=== PATIENT | male | born 1955 | race Caucasian/White ===

== ENCOUNTER 2019-06-13 12:27 | Inpatient (IN) | payer BC ==
[2019-06-13] MEDS ORDERED: Acetaminophen 325 MG Tab PO ONE (12:35)
[2019-06-13] MEDS ORDERED: cefTRIAXone 1 GM in Sodium Chloride 0.9% 100 ML IV ONE (12:35)
--- NOTE | 2019-06-13 12:35 | EDM.PDOC ---
ED HPI GENERAL MEDICAL PROBLEM - General Chief Complaint: Lower Extremity Injury/Pain Stated Complaint: left foot wound Time Seen by Provider: 06/13/19 12:30 Source of Information: Reports: Patient, Old Records ([facility] chart/EMR), Other (Limited records from [facility] in [place]) History Limitations: Reports: No Limitations - History of Present Illness INITIAL COMMENTS - FREE TEXT/NARRATIVE: The patient drove himself to the emergency room via private automobile for evaluation of cellulitis and lymphangitis from his left foot after initial brief evaluation by his regular provider, PHOEBE Cotter at the [facility] in [place], who did refer the patient to our facility for further treatment and evaluation. The patient had some callus and superficial ulcer on his left third toe, which he pulled off on his own about one week ago with no problems or pain at that time. Note that since about 16:00 hours yesterday afternoon the patient began having increasing 5/10 sharp pain in his left toe and foot with increasing redness and some drainage since that time. Note that the patient was cleaning multiple buckets at work and did have wet feet and boots throughout the day yesterday, however no history of acute injury, foreign body, etc.. He did not take any pain or antipyretic medications for his symptoms to this point. The patient denies any chest pain/pressure, heart flutter, dizziness, orthostasis, orthopnea, diaphoresis, paresthesias, recent decreased exercise tolerance, or any other anginal-type symptoms. No recent history of abdominal pain, heartburn, nausea, diarrhea, melena, gross hematochezia, or any food intolerance, including fatty foods, etc.. He denies any gross hematuria, colic, UTI symptoms, etc. The patient also denies any recent cough, wheezing, dyspnea, etc. although he did have fever and chills since yesterday afternoon but did not measure his temperature. Temperature of 100.1 at [facility] in [place] prior to transfer. Onset: Gradual Onset Date: 06/12/19 Onset Time: 16:00 Duration: Constant, Getting Worse Location: Reports: Lower Extremity, Left. Denies: Head, Face, Neck, Abdomen, Back, Upper Extremity, Left, Upper Extremity, Right, Radiates to Quality: Reports: Sharp, Stabbing, Throbbing Severity: Mild Improves with: Reports: None Worsens with: Reports: None Context: Reports: Other (As above). Denies: Sick Contact, Trauma Associated Symptoms: Reports: Fever/Chills, Rash (Cellulitis as above). 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: Reports: Other (see below) (None) Left Toe-Middle Pain Score (Numeric/FACES): 5 - Related Data Allergies Allergy/AdvReac Type Severity Reaction Status Date / Time venom-honey bee Allergy Anaphylactic Verified 11/05/15 16:50 [bee venom (honey bee)] Shock Home Meds: Home Meds Brimonidine Tartrate/Timolol [Combigan 0.2%-0.5% Eye Drops] 1 drop EYEBOTH DAILY 11/05/15 [History] EPINEPHrine [Epipen 2-Shon] 0.3 ml SUBCUT ASDIRECTED PRN 11/05/15 [History] Fenofibrate,Micronized [Fenofibrate] 134 mg PO BEDTIME 11/05/15 [History] Latanoprost 1 drop EYEBOTH BEDTIME 11/05/15 [History] Olmesartan [Benicar] 20 mg PO DAILY 11/05/15 [History] Pravastatin Sodium [Pravachol] 40 mg PO BEDTIME 11/05/15 [History] metFORMIN HCl [Metformin HCl] 1,000 mg PO DAILY@1800 06/13/19 [History] metFORMIN [Glucophage XR] 500 mg PO DAILY 06/13/19 [History] Past Medical History HEENT History: Reports: Glaucoma, Impaired Vision, Otitis Media, Other (See Below). Denies: Allergic Rhinitis, Cataract, Hard of Hearing, Retinal Detachment Other HEENT History: Recurrent otitis media with no surgeries required. Nasal fracture at the time of delivery with subsequent surgery at age 34. He does wear glasses. Severe allergic reaction with wasp and bee stings including dyspnea and dysphagia. Cardiovascular History: Reports: High Cholesterol, Hypertension, Other (See Below). Denies: Afib, Aneurysm, Arrhythmia, Blood Clots/VTE/DVT, CAD, Heart Failure, Heart Murmur, [place], PVD, Syncope Other Cardiovascular History: Dyslipidemia/mixed hyperlipidemia. Respiratory History: Reports: COPD, Intubation, Previous, Pulmonary Fibrosis, Other (See Below). Denies: Asthma, Bronchitis, Recurrent, Intubation, Difficult , PE, Pneumonia, Recurrent, Sleep Apnea Other Respiratory History: COPD and pulmonary fibrosis by chest x-ray with no current or previous therapy. Benign pulmonary nodules. Gastrointestinal History: Reports: Fatty Liver, GERD, Other (See Below). Denies : Celiac Disease, Cholelithiasis, Chronic Constipation, Chronic Diarrhea, Colon Polyp, Fecal Incontinence, Hepatitis, Helicobacter Pylori, Inflammatory Bowel Disease, Irritable Bowel Syndrome, Jaundice, Pancreatitis, PUD Other Gastrointestinal History: History of LFTs elevation secondary to fatty liver. Genitourinary History: Reports: BPH, Renal Calculus, Other (See Below). Denies : Acute Renal Failure, Chronic Renal Insuffiency, STD, Urinary Incontinence, UTI , Recurrent Other Genitourinary History: History of possible suspected urolithiasisside unknown with spontaneous passage in about 2004 and no diagnostic workup by patient history. Musculoskeletal History: Reports: Arthritis, Osteoarthritis, Other (See Below). Denies: Back Pain, Chronic, Fracture, Gout, Neck Pain, Chronic, RA, SLE Other Musculoskeletal History: Moore's cyst of the right knee with surgery as below. Neurological History: Reports: Headaches, Chronic, Neuropathy, Diabetic, Neuropathy, Peripheral, Other (See Below). Denies: Cerebral Aneurysms, Concussion, Head Trauma, MS, Parkinson's, Seizure, TIA, Vertigo Other Neuro History: Nonspecific headaches in teenage years nonproblematic at this time. Psychiatric History: Reports: Anxiety, Depression. Denies: Abuse, Victim of, ADD, ADHD, Addiction, Dementia, Hallucinations, Psych Hospitalization(s), Psychosis, PTSD, Suicide Attempt, Suicidal Ideation Endocrine/Metabolic History: Reports: Diabetes, Type II, Multinodular Thyroid, Obesity/BMI 30+, Other (See Below). Denies: Diabetes, Type I, Diabetes Mellitus , Type 3c, Hypothyroidism, IDDM, Osteopenia, Osteoporosis Other Endocrine/Metabolic History: Multiple benign thyroid nodules by serial ultrasounds as below with no apparent previous history of fine-needle aspiration biopsy. Hematologic History: Reports: None. Denies: Anemia, Blood Transfusion(s), Iron Deficiency Immunologic History: Reports: None. Denies: AIDS, HIV, SLE Oncologic (Cancer) History: Reports: None. Denies: Basal Cell Carcinoma, Colon , Hodgkin's Lymphoma, Leukemia, Lymphoma, Malignant Melanoma, Non-Hodgkin's Lymphoma, Prostate, Squamous Cell Carcinoma Dermatologic History: Reports: None. Denies: Eczema, Psoriasis - Infectious Disease History Infectious Disease History: Reports: Chicken Pox, Mumps. Denies: C-Difficile, Measles, Meningitis, Mononucleosis, MRSA, Pertussis (Whooping Cough), Rheumatic Fever, RSV, Rubella, Scarlet Fever, Shingles, TB, VRE - Past Surgical History Head Surgeries/Procedures: Reports: None HEENT Surgical History: Reports: Adenoidectomy, Naso-Sinus Surgery, Oral Surgery , Tonsillectomy, Other (See Below). Denies: Cataract Surgery, Eye Surgery, Myringotomy w Tube(s) Other HEENT Surgeries/Procedures: Tonsillectomy and adenoidectomy at age 1. Repair of nasal fracture at at age 34 as above. [place] teeth extraction 2 uppers in his early 50s. Cardiovascular Surgical History: Reports: None. Denies: Varicose Respiratory Surgical History: Reports: None. Denies: Thoracentesis GI Surgical History: Reports: Colonoscopy, Other (See Below). Denies: Appendectomy, Cholecystectomy, EGD, Hernia, Abdominal, Hernia, Inguinal, Hernia Repair/Other, Aubrey Fundoplication, Polypectomy Other GI Surgeries/Procedures: Colonoscopy on 01/07/10. Male Surgical History: Reports: Circumcision, Other (See Below). Denies: TURP-Transurethral Resection of Prostate, Vasectomy Other Male Surgeries/Procedures: Circumcision as an . Endocrine Surgical History: Reports: None. Denies: Thyroid Biopsy Neurological Surgical History: Reports: None. Denies: C-Spine, Discectomy, Laminectomy, Lumbar Spine, Sacral Spine, Spinal Fusion, Thoracic Spine, Vertebroplasty Musculoskeletal Surgical History: Reports: Arthroscopic Knee, Arthroscopic Procedure, Other (See Below). Denies: Carpal Tunnel, Ganglion Cyst, Joint Replacement, ORIF, Shoulder Replacement, Shoulder Surgery Other Musculoskeletal Surgeries/Procedures:: Right knee arthroscopic medial meniscal repair on 10/25/13. Oncologic Surgical History: Reports: None Dermatological Surgical History: Reports: Other (See Below) Other Dermatological Surgeries/Procedures: Cryotherapy of benign lesions from his right clavicle and right temporal region. - Past Imaging History Past Imaging History: Reports: MRI (Right knee on 02/06/13. Left fingers on 07/14.), Ultrasound (Thyroid ultrasound on 09/20/18, 03/15/14, 03/05/13, and . Left scrotal ultrasound on 02/05/15. Gallbladder ultrasound on 12/20/11.) Social & Family History - Family History HEENT: Reports: None. Denies: Cataract, Glaucoma, Macular Degeneration, Retinal Detachment Cardiac: Reports: CAD, Heart Failure, Hypertension, [place], Other (See Below). Denies: Afib, Aneurysm, Arrhythmia, Blood Clots/VTE/DVT, Heart Murmur, High Cholesterol, Pacemaker, PVD/COD, Syncope Other Cardiac Family History: Father and 2 brothers with hypertension. Father with fatal CHF at age 72. Paternal aunt with KY in her 70s with subsequent fatal KY 3 days thereafter after PTCA/stent placement. Respiratory: Reports: Asthma, Other (See Below). Denies: COPD, PE, Pneumothorax , Sleep Apnea Other Respiratory Family Hisory: Father with asthma. GI: Reports: None. Denies: Celiac Disease, Cholelithiasis, Colon Polyps, GERD, GI bleed, Inflammatory Bowel Disease, Irritable Bowel Syndrome, PUD : Reports: None. Denies: Dialysis, Renal Calculus, Renal Disease/ Insufficiency OBGYN: Reports: Other (See Below). Denies: Dysfunctional uterine bleeding, Endometriosis Other OBGYN Family History: Mother with and ovarian cancer as below Musculoskeletal: Reports: Arthritis, Osteoarthritis, Other (See Below). Denies : Gout, RA, SLE Other Musculoskeletal Family History: Paternal aunt with osteoarthritis. Neurological: Reports: Parkinson's, Other (See Below). Denies: Alzheimers Disease, CVA, Dementia, Migraines, MS, Seizure, TIA Other Neurological Family History: Paternal Aunt with Parkinson's. Son with muscular dystrophy. Psychiatric: Reports: Anxiety, Depression, Suicide Attempt, Other (See Below) Other Psychiatric Family History: Maternal uncle with successful suicide Endocrine/Metabolic: Reports: Diabetes, type II, IDDM, Other (See Below). Denies: Diabetes, Gestational, Diabetes, Type I, Diabetes Mellitus, Type 3c, Hypothyroidism Other Endocrine/Metabolic Family History: Maternal grandmother, maternal uncle, and maternal aunt with IDDM Hematologic: Reports: None. Denies: Anemia, SLE Immunologic: Reports: None. Denies: AIDS, HIV, SLE Dermatologic: Reports: None. Denies: Eczema, Psoriasis Oncologic: Reports: Lymphoma, Metastatic, Ovarian, Uterine. Denies: Breast, Colon, Hodgkin's Lymphoma, Leukemia, Non-Hodgkin's Lymphoma, Prostate, Skin Other Oncologic Family History: Mother with fatal metastatic ovarian cancer at age 54. Brother with possible abdominal lymphoma in his 50s. - Tobacco Use Smoking Status *Q: Never Smoker Tobacco Use Within Last Twelve Months: No Used Tobacco, but Quit: No Smoking Cessation Information Provided To Patient: No Second Hand Smoke Exposure: No Second Hand Smoke Education Provided: No - Caffeine Use Caffeine Use: Reports: None, Soda (1 soda per month). Denies: Coffee, Energy Drinks, Tea - Alcohol Use Alcohol Use History: No Days Per Week of Alcohol Use: 0 Number of Drinks Per Day: 0 Number of Drinks Per Day Comment: No previous DWIs, problems with alcohol abuse , etc. Total Drinks Per Week: 0 Alcohol Use in Last Twelve Months: No - Recreational Drug Use Recreational Drug Use: No Drug Use in Last 12 Months: No Recreational Drug Type: Denies: Amphetamines (Speed), Cocaine, Heroin, Inhalants (Glues, Solvents, Aerosols), LSD (Acid), Marijuana/Hashish, Methamphetamine, Morphine, Oxycodone - Sexual History Sexual History: Reports: Single Partner - Living Situation & Occupation Living situation: Reports: (1991, 2 children), with Family Occupation: Employed ([employer]) Review of Systems - Review of Systems Review Of Systems: Comprehensive ROS is negative, except as noted in HPI. ED EXAM, GENERAL - Physical Exam Exam: See Below Exam Limited By: No Limitations General Appearance: Alert, WD/WN, No Apparent Distress, Anxious (Mild) Eye Exam: Bilateral Eye: EOMI, Normal Inspection (No Nystagmus. Patient wearing glasses.) Ears: Normal External Exam, Normal Canal, Hearing Grossly Normal, Normal TMs Nose: Normal Inspection, Normal Mucosa, No Blood Throat/Mouth: Normal Inspection, Normal Lips, Normal Teeth, Normal Gums, Normal Oropharynx, Normal Voice, No Airway Compromise. No: Dysphagia, Perioral Cyanosis Head: Atraumatic, Normocephalic. No: Facial Swelling, Facial Tenderness, Sinus Tenderness Neck: Normal Inspection, Supple, Non-Tender, Full Range of Motion. No: Carotid Bruit, Lymphadenopathy (L), Lymphadenopathy (R), Thyromegaly Respiratory/Chest: No Respiratory Distress, Lungs Clear, Normal Breath Sounds, No Accessory Muscle Use, Chest Non-Tender. No: Pleural Rub, Retractions Cardiovascular: Normal Peripheral Pulses, No JVD, No Murmur, No Rub, Tachycardia (Mild secondary to fever. Regular rhythm). No: Regular Rate, Rhythm , No Edema (Dependent edema as below), Gallop/S3, Gallop/S4, Friction Rub Peripheral Pulses: 2+: Radial (L), Radial (R), Dorsalis Pedis (L), Dorsalis Pedis (R) GI/Abdominal: Normal Bowel Sounds, Soft, Non-Tender, No Organomegaly, No Distention, No Abnormal Bruit, No Mass, Pelvis Stable, Other (Obese). No: Guarding (Male) Exam: Deferred Rectal (Males) Exam: Deferred Extremities: Normal Inspection, Normal Range of Motion, No Pedal Edema, Normal Capillary Refill, Pedal Edema (+1 pedal/pretibial edema of the left leg with trace pedal/pretibial edema the right leg), Joint Swelling (Moderate swelling and localized palpation pain of digit #3 of the left foot since including a grade 2 ulcer of 0.5 cm in diameter at the foot with some mild drainage. +3 erythema over the dorsal aspect of the left foot with lymphangitis extending over the anterior tibial region to the infrapatellar region), Leg Pain (As above ), Increased Warmth (Mild left foot and leg as above ), Redness (As above), Other (23 cm pressure callus over the mid plantar aspect of the left foot over the mid third metatarsal with no local signs of infection). No: Non-Tender ( Mild tenderness/palpation pain over the dorsal aspect of the left foot), Mitzy' s Sign Neurological: Alert, Oriented, CN II-XII Intact, Normal Cognition, Normal Gait, Normal Reflexes (Negative Babinski's), No Motor/Sensory Deficits Psychiatric: Normal Affect, Normal Mood Skin Exam: Erythema (As above), Increased Warmth (As above), Lymphangitis (As above), Wound/Incision (As above). No: Diaphoretic Lymphatic: No Adenopathy Course - Vital Signs Last Recorded V/S: Last Vital Signs Temp 37.2 C 06/13/19 12:30 Pulse 97 06/13/19 14:00 Resp 15 06/13/19 14:00 BP 125/64 06/13/19 14:00 Pulse Ox 97 06/13/19 14:00 Vital Signs - 24 hr 06/13/19 06/13/19 06/13/19 12:30 12:59 13:30 Temperature [ 37.2 C Temporal] Pulse, 111 H 109 H 101 H Peripheral [ Pulse Oximetry] Respiratory 16 20 18 Rate Blood Pressure 148/72 H 138/74 130/69 [Right Upper Arm] O2 Sat by Pulse 100 98 98 Oximetry 06/13/19 14:00 Temperature [ Temporal] Pulse, 97 Peripheral [ Pulse Oximetry] Respiratory 15 Rate Blood Pressure 125/64 [Right Upper Arm] O2 Sat by Pulse 97 Oximetry - Orders/Labs/Meds Orders: Active Orders 24 hr Category Date Time Status Cardiac Monitoring [RC] . DIRECTED Care 06/13/19 12:35 Active Communication Order [RC] ROUTINE Care 06/13/19 12:35 Active Oxygen Therapy, ED [RC] PRN Care 06/13/19 12:35 Active Peripheral IV Care [RC] . DIRECTED Care 06/13/19 12:36 Active Pulse Oximetry [RC] CONTINUOUS Care 06/13/19 12:35 Active Up With Assistance [RC] ASDIRECTED Care 06/13/19 12:35 Active Nothing Per Oral Diet [DIET] Diet 06/13/19 Breakfast Active CULTURE BLOOD [BC] Stat Lab 06/13/19 12:40 Received CULTURE BLOOD [BC] Stat Lab 06/13/19 12:55 Received CULTURE WOUND + SMEAR [RM] Stat Lab 06/13/19 13:15 Received Sodium Chloride 0.9% [Saline Flush] Med 06/13/19 12:35 Active 10 ml FLUSH ASDIRECTED PRN Blood Culture x2 Reflex Set [OM.PC] Stat Oth 06/13/19 12:35 Ordered Obtain Past Medical Record [OM.PC] Stat Oth 06/13/19 12:35 Active Peripheral IV Insertion Adult [OM.PC] Stat Oth 06/13/19 12:35 Ordered Resuscitation Status Routine Resus Stat 06/13/19 12:35 Ordered Medication Orders Sodium Chloride (Saline Flush) 10 ml FLUSH ASDIRECTED PRN PRN Reason: Keep Vein Open Last Admin: 02/19/20 13:09 Dose: 10 ml Labs: Laboratory Tests 06/13/19 06/13/19 06/13/19 Range/Units 12:40 12:40 12:40 WBC 13.8 H (4.0-10.2) K/uL RBC 4.29 L (4.33-5.41) M/uL Hgb 13.3 D (13.1-16.8) g/dL Hct 39.5 (39.0-49.0) % MCV 92.1 (84.0-98.0) fL MCH 31.0 (28.2-33.3) pg MCHC 33.7 (31.7-36.0) g/dL RDW 13.1 (11.2-14.1) % Plt Count 155 (150-350) K/uL Neut % (Auto) 86.2 H (45.0-80.0) % Lymph % (Auto) 6.5 L (10.0-50.0) % Howard % (Auto) 6.8 (2.0-14.0) % Eos % (Auto) 0.4 (0.0-5.0) % Baso % (Auto) 0.1 (0.0-2.0) % Neut # (Auto) 11.85 H (1.40-7.00) K/uL Lymph # (Auto) 0.90 (0.50-3.50) K/uL Howard # (Auto) 0.94 (0.00-1.00) K/uL Eos # (Auto) 0.06 (0.00-0.50) K/uL Baso # (Auto) 0.02 (0.00-0.20) K/uL PT 11.1 (9.5-12.0) SEC INR 1.3 APTT 32.9 H (21.0-31.3) SEC D-Dimer, Quantitative < 100 (0-400) ng/mL Sodium (136-145) mmol/L Potassium (3.5-5.1) mmol/L Chloride (98-107) mmol/L Carbon Dioxide (21.0-32.0) mmol/L BUN (7-18) mg/dL Creatinine (0.51-1.17) mg/dL Est Cr Clr Drug Dosing mL/min Estimated GFR (MDRD) mL/min Glucose (74-106) mg/dL Lactic Acid (0.4-2.0) mmol/L Calcium (8.5-10.1) mg/dL Magnesium (1.8-2.4) mg/dL Total Bilirubin (0.2-1.0) mg/dL AST (15-37) U/L ALT (12-78) U/L Alkaline Phosphatase (46-116) IU/L Total Protein (6.4-8.2) g/dL Albumin (3.4-5.0) g/dL TSH, Ultra Sensitive (0.358-3.740) mIU/mL 06/13/19 06/13/19 Range/Units 12:40 12:40 WBC (4.0-10.2) K/uL RBC (4.33-5.41) M/uL Hgb (13.1-16.8) g/dL Hct (39.0-49.0) % MCV (84.0-98.0) fL MCH (28.2-33.3) pg MCHC (31.7-36.0) g/dL RDW (11.2-14.1) % Plt Count (150-350) K/uL Neut % (Auto) (45.0-80.0) % Lymph % (Auto) (10.0-50.0) % Howard % (Auto) (2.0-14.0) % Eos % (Auto) (0.0-5.0) % Baso % (Auto) (0.0-2.0) % Neut # (Auto) (1.40-7.00) K/uL Lymph # (Auto) (0.50-3.50) K/uL Howard # (Auto) (0.00-1.00) K/uL Eos # (Auto) (0.00-0.50) K/uL Baso # (Auto) (0.00-0.20) K/uL PT (9.5-12.0) SEC INR APTT (21.0-31.3) SEC D-Dimer, Quantitative (0-400) ng/mL Sodium 138 (136-145) mmol/L Potassium 4.2 (3.5-5.1) mmol/L Chloride 102 (98-107) mmol/L Carbon Dioxide 26.7 (21.0-32.0) mmol/L BUN 20 H (7-18) mg/dL Creatinine 0.97 (0.51-1.17) mg/dL Est Cr Clr Drug Dosing 93.21 mL/min Estimated GFR (MDRD) > 60 mL/min Glucose 248 H (74-106) mg/dL Lactic Acid 1.7 (0.4-2.0) mmol/L Calcium 9.3 (8.5-10.1) mg/dL Magnesium 1.8 (1.8-2.4) mg/dL Total Bilirubin 0.6 (0.2-1.0) mg/dL AST 18 (15-37) U/L ALT 28 (12-78) U/L Alkaline Phosphatase 66 (46-116) IU/L Total Protein 7.4 (6.4-8.2) g/dL Albumin 4.0 (3.4-5.0) g/dL TSH, Ultra Sensitive 0.534 (0.358-3.740) mIU/mL Blood Cultures 2 were collected Specimen collected from wound from left selective for Gram stain, culture, and sensitivity. Meds: Medications Generic Name Dose Route Start Last Admin Trade Name Freq PRN Reason Stop Dose Admin Sodium Chloride 10 ml 06/13/19 12:35 06/13/19 13:09 Saline Flush FLUSH 10 ml ASDIRECTED PRN Administration Keep Vein Open Discontinued Medications Generic Name Dose Route Start Last Admin Trade Name Freq PRN Reason Stop Dose Admin Acetaminophen 650 mg 06/13/19 12:35 06/13/19 13:04 Tylenol PO 06/13/19 12:36 650 mg ONETIME ONE Administration Ceftriaxone Sodium 1 gm/ 100 mls @ 200 mls/hr 06/13/19 12:35 06/13/19 13:04 Sodium Chloride IV 06/13/19 13:04 200 mls/hr ONETIME ONE Administration - Radiology Interpretation Free Text/Narrative:: security monitor shows some mild sinus tachycardia in the 110s with no ectopy or arrhythmia. Departure - Departure Time of Disposition: 14:05 Disposition: Admitted As Inpatient 65 Condition: Good Clinical Impression: Cellulitis, Hyperlipidemia, Hypertension, Diabetes mellitus, Diabetic neuropathy, COPD (chronic obstructive pulmonary disease), Peptic reflux disease , Mixed anxiety depressive disorder - Discharge Information Referrals: Shayy Hargrove NP [Primary Care Provider] - Forms: ED Department Discharge Sepsis Event Note - Evaluation Sepsis Screening Result: Possible Sepsis Risk - Focused Exam Vital Signs: Vital Signs Temp Pulse Resp BP Pulse Ox 06/13/19 14:00 97 15 125/64 97 06/13/19 13:30 101 H 18 130/69 98 06/13/19 12:59 109 H 20 138/74 98 06/13/19 12:30 37.2 C 111 H 16 148/72 H 100 Date Exam was Performed: 06/13/19 Time Exam was Performed: 14:05 - Problem List & Annotations (1) Cellulitis SNOMED Code(s): 559509145 Code(s): L03.90 - CELLULITIS, UNSPECIFIED Status: Acute Priority: High Current Visit: Yes Onset Date: 06/12/19 Annotation/Comment:: Various therapeutic options were discussed with the patient, who agrees to admission to inpatient care for aggressive IV antibiotic therapy as above. Additional oral Bactrim DS therapy will also be initiated to rule out possible MRSA. Specimen collected for Gram stain, culture, and sensitivity. Secondary to toe swelling and lymphangitis a CT scan of the foot will be obtained to rule out osteomyelitis. Orthopedic consultation depending on his clinical course. Physical therapy consultation for wound care, etc. Note that the patient is wanting to claim this as a Workmen's Compensation injury secondary to his foot exposure while cleaning buckets yesterday. Note, however, the patient did have a previous grade 2 ulcer in the same area about one week ago with no known previous infection. The patient has initiated appropriate paperwork for Workmen' s Compensation claim. Blood Cultures 2 were collected with no evidence of lactic acid elevation, etc. Qualifiers: Site of cellulitis: extremity Site of cellulitis of extremity: lower extremity Laterality: left Qualified Code(s): L03.116 - Cellulitis of left lower limb (2) COPD (chronic obstructive pulmonary disease) SNOMED Code(s): 82614826 Code(s): J44.9 - CHRONIC OBSTRUCTIVE PULMONARY DISEASE, UNSPECIFIED Status : Chronic Priority: Medium Current Visit: Yes Annotation/Comment:: Stable by patient history with no recent bronchitic type symptoms. Note no previous medical therapy. Consider PFTs in the future. Qualifiers: COPD type: emphysema Emphysema type: panlobular Qualified Code(s): J43.1 - Panlobular emphysema (3) Diabetes mellitus SNOMED Code(s): 80863402 Code(s): E11.9 - TYPE 2 DIABETES MELLITUS WITHOUT COMPLICATIONS Status: Chronic Priority: Medium Current Visit: Yes Annotation/Comment:: He does not Accu-Cheks at home, however excellent glycosylated hemoglobin in March by his regular provider. Observe for now. Qualifiers: Diabetes mellitus type: type 2 Diabetes mellitus fci insulin use: without terminal make up operator use Diabetes mellitus complication status: with neurologic complications Diabetes mellitus complication detail: with polyneuropathy Qualified Code(s): E11.42 - Type 2 diabetes mellitus with diabetic polyneuropathy (4) Diabetic neuropathy SNOMED Code(s): 260166772, 851252523 Code(s): E11.40 - TYPE 2 DIABETES MELLITUS WITH DIABETIC NEUROPATHY, UNSP Status: Acute Priority: High Current Visit: Yes Onset Date: ~06/13/19 Annotation/Comment:: Probable newly diagnosed diabetic neuropathy secondary to no discomfort from removing callus/eschar from his toe 1 week ago. Close observation by his regular provider on basis. Qualifiers: Diabetes mellitus type: type 2 Diabetes mellitus complication detail: diabetic polyneuropathy Qualified Code(s): E11.42 - Type 2 diabetes mellitus with diabetic polyneuropathy (5) Hyperlipidemia SNOMED Code(s): 56003579 Code(s): E78.5 - HYPERLIPIDEMIA, UNSPECIFIED Status: Chronic Priority: Medium Current Visit: Yes Annotation/Comment:: Currently under therapy. Continue to observe closely by his regular provider. Qualifiers: Hyperlipidemia type: mixed hyperlipidemia Qualified Code(s): E78.2 - Mixed hyperlipidemia (6) Hypertension SNOMED Code(s): 66236427 Code(s): I10 - ESSENTIAL (PRIMARY) HYPERTENSION Status: Chronic Priority : Medium Current Visit: Yes Annotation/Comment:: Stable in the emergency room. Qualifiers: Hypertension type: essential hypertension Qualified Code(s): I10 - Essential (primary) hypertension (7) Mixed anxiety depressive disorder SNOMED Code(s): 385351850 Code(s): F41.8 - OTHER SPECIFIED ANXIETY DISORDERS Status: Chronic Priority: Medium Current Visit: Yes Annotation/Comment:: Stable by patient history, however note significant stressors at home currently secondary to his having to take care of his son with muscular dystrophy in [place] during the last 1.5 years. Emotional support was provided. (8) Peptic reflux disease SNOMED Code(s): 175419219 Code(s): K21.9 - GASTRO-ESOPHAGEAL REFLUX DISEASE WITHOUT ESOPHAGITIS Status: Chronic Priority: Medium Current Visit: Yes Annotation/Comment:: Stable by history. - Problem List Review Problem List Initiated/Reviewed/Updated: Yes - My Orders Last 24 Hours: My Active Orders 06/13/19 12:35 Cardiac Monitoring [RC] . DIRECTED Communication Order [RC] ROUTINE Oxygen Therapy, ED [RC] PRN Pulse Oximetry [RC] CONTINUOUS Up With Assistance [RC] ASDIRECTED Sodium Chloride 0.9% [Saline Flush] 10 ml FLUSH ASDIRECTED PRN Blood Culture x2 Reflex Set [OM.PC] Stat Obtain Past Medical Record [OM.PC] Stat Peripheral IV Insertion Adult [OM.PC] Stat Resuscitation Status Routine 06/13/19 12:36 Peripheral IV Care [RC] . DIRECTED 06/13/19 12:40 CULTURE BLOOD [BC] Stat 06/13/19 12:55 CULTURE BLOOD [BC] Stat 06/13/19 13:15 CULTURE WOUND + SMEAR [RM] Stat 06/13/19 Breakfast Nothing Per Oral Diet [DIET] - Assessment/Plan Admission H&P: Please use this note as an admission H&P Last 24 Hours: My Active Orders 06/13/19 12:35 Cardiac Monitoring [RC] . DIRECTED Communication Order [RC] ROUTINE Oxygen Therapy, ED [RC] PRN Pulse Oximetry [RC] CONTINUOUS Up With Assistance [RC] ASDIRECTED Sodium Chloride 0.9% [Saline Flush] 10 ml FLUSH ASDIRECTED PRN Blood Culture x2 Reflex Set [OM.PC] Stat Obtain Past Medical Record [OM.PC] Stat Peripheral IV Insertion Adult [OM.PC] Stat Resuscitation Status Routine 06/13/19 12:36 Peripheral IV Care [RC] . DIRECTED 06/13/19 12:40 CULTURE BLOOD [BC] Stat 06/13/19 12:55 CULTURE BLOOD [BC] Stat 06/13/19 13:15 CULTURE WOUND + SMEAR [RM] Stat 06/13/19 Breakfast Nothing Per Oral Diet [DIET] Assessment:: As above Plan: As above. Extensive precautions were given to the patient, who is in agreement with the treatment plan. The patient will require about 3-4 days of inpatient/ acute care secondary to multiple health problems as above.
[2019-06-13] MEDS: Sodium Chloride 0.9% 10 ML Syringe FLUSH PRN (13:09)
[2019-06-13 13:14] LABS: CHLORIDE,CL 102 mmol/L (98-107); SODIUM,NA 138 mmol/L (136-145)
[2019-06-13] MEDS ORDERED: Lactated Ringers 1,000 ML IV ONE (14:15)
[2019-06-13] MEDS ORDERED: Temazepam 15 MG Cap PO PRN (14:20)
[2019-06-13] MEDS: Sodium Chloride 0.9% 10 ML Syringe FLUSH SCH (14:42)
[2019-06-13] MEDS: Bacitracin/Neomycin/Polymyxin B Oint 0.9 GM U/D Packet TOP SCH (14:42)
[2019-06-13] MEDS ORDERED: Acetaminophen 325 MG Tab PO PRN (15:00)
[2019-06-13] MEDS: Sulfamethoxazole/Trimethoprim 800-160 MG Tab PO SCH (17:01)
[2019-06-13] MEDS: metFORMIN 500 MG Tab PO SCH (17:01)
[2019-06-13] MEDS: Fenofibrate,Micronized 134 MG Cap PO SCH (19:24)
[2019-06-13] MEDS: Pravastatin 20 MG Tab PO SCH (19:24)
[2019-06-13] MEDS ORDERED: Albuterol/Ipratropium 3.0-0.5 MG/3 ML Neb Soln NEB SCH (20:00)
[2019-06-13] MEDS ORDERED: Latanoprost 0.005% Ophth Soln 2.5 ML Bottle EYEBOTH SCH (20:00)
[2019-06-14] MEDS: cefTRIAXone 1 GM in Sodium Chloride 0.9% 100 ML IV SCH ×2 (00:13→12:18)
[2019-06-14] MEDS: Sodium Chloride 0.9% 10 ML Syringe FLUSH SCH ×3 (00:14→13:41)
[2019-06-14] MEDS: Sulfamethoxazole/Trimethoprim 800-160 MG Tab PO SCH ×2 (07:19→17:21)
[2019-06-14] MEDS: Losartan 50 MG Tab PO SCH (07:19)
[2019-06-14] MEDS: metFORMIN 500 MG Tab PO SCH ×2 (07:19→17:21)
[2019-06-14] MEDS: Bacitracin/Neomycin/Polymyxin B Oint 0.9 GM U/D Packet TOP SCH (07:20)
[2019-06-14 08:00] LABS: CHLORIDE,CL 105 mmol/L (98-107); SODIUM,NA 141 mmol/L (136-145)
[2019-06-14] MEDS ORDERED: Timolol Maleate 0.5% Ophth Soln 5 ML Bottle EYEBOTH SCH (08:00)
[2019-06-14] MEDS ORDERED: Brimonidine 0.2% Ophth Soln 5 ML Bottle EYEBOTH SCH (08:00)
--- NOTE | 2019-06-14 09:53 | PCM.PN ---
- General Info Date of Service: 06/14/19 Admission Dx/Problem (Free Text): 1. Cellulitis-left foot 2. Diabetes mellitus Functional Status: Reports: Pain Controlled, Tolerating Diet, Ambulating, Urinating. Denies: New Symptoms, Incentive Spirometry Pain Score: 1 - Review of Systems General: Reports: No Symptoms. Denies: Fever, Weakness, Fatigue, Malaise, Chills, Night Sweats, Appetite (Good) HEENT: Reports: Glasses. Denies: Dysphasia, Ear Pain, Eye Pain, Headaches, Post Nasal Drip, Sinus Congestion, Sore Throat, Rhinitis, Visual Changes Pulmonary: Reports: No Symptoms. Denies: Shortness of Breath, Pleuritic Chest Pain, Cough, Sputum, Hemoptysis, Wheezing Cardiovascular: Reports: Edema (Improved). Denies: Chest Pain, Palpitations, Dyspnea on Exertion, Lightheadedness Gastrointestinal: Reports: No Symptoms, Other (No bowel movement since admission ). Denies: Abdominal Pain, Constipation, Decreased Appetite, Diarrhea, Difficulty Swallowing, Flatus, Hematochezia, Melena, Nausea, Vomiting Genitourinary: Reports: No Symptoms. Denies: Dysuria, Frequency, Burning, Pain , Urgency, Incontinence, Hematuria, Retention, Flank Pain Musculoskeletal: Reports: Foot Pain (Mild left foot), Joint Swelling (Digit #3 left foot). Denies: Neck Pain, Shoulder Pain, Arm Pain, Back Pain, Leg Pain Skin: Reports: Rash (Cellulitis left foot and leg improving). Denies: Diaphoresis, Dryness, Bruising, Pruritis Neurological: Reports: No Symptoms, Difficulty Walking (Minimal secondary to left foot infection). Denies: Confusion, Dizziness, Headache, Numbness, Paresthesia, Tingling, Weakness Psychiatric: Reports: No Symptoms. Denies: Confusion, Depression, Anxiety, Agitation, Cravings, Hallucinations - Patient Data Vitals - Most Recent: Last Vital Signs Temp 36.7 C 06/14/19 07:27 Pulse 72 06/14/19 07:27 Resp 16 06/14/19 07:27 BP 123/82 06/14/19 07:27 Pulse Ox 95 06/14/19 07:27 Vital Signs - 24 hr 06/13/19 06/13/19 06/13/19 12:30 12:59 13:30 Temperature [ 37.2 C Temporal] Pulse, 111 H 109 H 101 H Peripheral [ Pulse Oximetry] Respiratory 16 20 18 Rate Blood Pressure Blood Pressure [Left] Blood Pressure 148/72 H 138/74 130/69 [Right Upper Arm] O2 Sat by Pulse 100 98 98 Oximetry 06/13/19 06/13/19 06/13/19 14:00 16:00 20:00 Temperature [ 36.8 C 36.8 C Temporal] Pulse, 97 76 82 Peripheral [ Pulse Oximetry] Respiratory 15 16 16 Rate Blood Pressure Blood Pressure 127/75 [Left] Blood Pressure 125/64 138/82 [Right Upper Arm] O2 Sat by Pulse 97 99 98 Oximetry 06/14/19 06/14/19 06/14/19 00:00 04:00 07:19 Temperature [ 37.0 C 36.2 C Temporal] Pulse, 82 72 Peripheral [ Pulse Oximetry] Respiratory 14 16 Rate Blood Pressure 123/82 Blood Pressure 131/78 128/77 [Left] Blood Pressure [Right Upper Arm] O2 Sat by Pulse 95 95 Oximetry 06/14/19 07:27 Temperature [ 36.7 C Temporal] Pulse, 72 Peripheral [ Pulse Oximetry] Respiratory 16 Rate Blood Pressure Blood Pressure [Left] Blood Pressure 123/82 [Right Upper Arm] O2 Sat by Pulse 95 Oximetry Weight - Most Recent: 105.097 kg I&O - Last 24 Hours: Intake & Output 06/13/19 06/14/19 06/14/19 22:59 06:59 14:59 Intake Total 240 500 360 Output Total 1750 500 900 Balance -1510 0 -540 Imaging Impressions - Last 24 Hours: case monitor normal sinus rhythm in the 70s with no ectopy or arrhythmia and resolution of previous mild sinus tachycardia on admission CT scan of the left foot without contrast on 06/13/19 does confirm osteomyelitis of the distal phalanx of digit #3 of the left foot Lab Results Last 24 Hours: Laboratory Results - last 24 hr 06/13/19 06/13/19 06/13/19 Range/Units 12:40 12:40 12:40 WBC 13.8 H (4.0-10.2) K/uL RBC 4.29 L (4.33-5.41) M/uL Hgb 13.3 D (13.1-16.8) g/dL Hct 39.5 (39.0-49.0) % MCV 92.1 (84.0-98.0) fL MCH 31.0 (28.2-33.3) pg MCHC 33.7 (31.7-36.0) g/dL RDW 13.1 (11.2-14.1) % Plt Count 155 (150-350) K/uL Neut % (Auto) 86.2 H (45.0-80.0) % Lymph % (Auto) 6.5 L (10.0-50.0) % [place] % (Auto) 6.8 (2.0-14.0) % Eos % (Auto) 0.4 (0.0-5.0) % Baso % (Auto) 0.1 (0.0-2.0) % Neut # (Auto) 11.85 H (1.40-7.00) K/uL Lymph # (Auto) 0.90 (0.50-3.50) K/uL [place] # (Auto) 0.94 (0.00-1.00) K/uL Eos # (Auto) 0.06 (0.00-0.50) K/uL Baso # (Auto) 0.02 (0.00-0.20) K/uL PT 11.1 (9.5-12.0) SEC INR 1.3 APTT 32.9 H (21.0-31.3) SEC D-Dimer, Quantitative < 100 (0-400) ng/mL Sodium (136-145) mmol/L Potassium (3.5-5.1) mmol/L Chloride (98-107) mmol/L Carbon Dioxide (21.0-32.0) mmol/L BUN (7-18) mg/dL Creatinine (0.51-1.17) mg/dL Est Cr Clr Drug Dosing mL/min Estimated GFR (MDRD) mL/min Glucose (74-106) mg/dL Lactic Acid (0.4-2.0) mmol/L Calcium (8.5-10.1) mg/dL Magnesium (1.8-2.4) mg/dL Total Bilirubin (0.2-1.0) mg/dL AST (15-37) U/L ALT (12-78) U/L Alkaline Phosphatase (46-116) IU/L Total Protein (6.4-8.2) g/dL Albumin (3.4-5.0) g/dL TSH, Ultra Sensitive (0.358-3.740) mIU/mL 06/13/19 06/13/19 06/14/19 Range/Units 12:40 12:40 07:22 WBC 10.7 H (4.0-10.2) K/uL RBC 4.26 L (4.33-5.41) M/uL Hgb 13.2 (13.1-16.8) g/dL Hct 39.5 (39.0-49.0) % MCV 92.7 (84.0-98.0) fL MCH 31.0 (28.2-33.3) pg MCHC 33.4 (31.7-36.0) g/dL RDW 13.1 (11.2-14.1) % Plt Count 161 (150-350) K/uL Neut % (Auto) 77.7 (45.0-80.0) % Lymph % (Auto) 12.0 (10.0-50.0) % [place] % (Auto) 8.1 (2.0-14.0) % Eos % (Auto) 2.0 (0.0-5.0) % Baso % (Auto) 0.2 (0.0-2.0) % Neut # (Auto) 8.35 H (1.40-7.00) K/uL Lymph # (Auto) 1.29 (0.50-3.50) K/uL [place] # (Auto) 0.87 (0.00-1.00) K/uL Eos # (Auto) 0.21 (0.00-0.50) K/uL Baso # (Auto) 0.02 (0.00-0.20) K/uL PT (9.5-12.0) SEC INR APTT (21.0-31.3) SEC D-Dimer, Quantitative (0-400) ng/mL Sodium 138 (136-145) mmol/L Potassium 4.2 (3.5-5.1) mmol/L Chloride 102 (98-107) mmol/L Carbon Dioxide 26.7 (21.0-32.0) mmol/L BUN 20 H (7-18) mg/dL Creatinine 0.97 (0.51-1.17) mg/dL Est Cr Clr Drug Dosing 93.21 mL/min Estimated GFR (MDRD) > 60 mL/min Glucose 248 H (74-106) mg/dL Lactic Acid 1.7 (0.4-2.0) mmol/L Calcium 9.3 (8.5-10.1) mg/dL Magnesium 1.8 (1.8-2.4) mg/dL Total Bilirubin 0.6 (0.2-1.0) mg/dL AST 18 (15-37) U/L ALT 28 (12-78) U/L Alkaline Phosphatase 66 (46-116) IU/L Total Protein 7.4 (6.4-8.2) g/dL Albumin 4.0 (3.4-5.0) g/dL TSH, Ultra Sensitive 0.534 (0.358-3.740) mIU/mL 06/14/19 Range/Units 07:22 WBC (4.0-10.2) K/uL RBC (4.33-5.41) M/uL Hgb (13.1-16.8) g/dL Hct (39.0-49.0) % MCV (84.0-98.0) fL MCH (28.2-33.3) pg MCHC (31.7-36.0) g/dL RDW (11.2-14.1) % Plt Count (150-350) K/uL Neut % (Auto) (45.0-80.0) % Lymph % (Auto) (10.0-50.0) % [place] % (Auto) (2.0-14.0) % Eos % (Auto) (0.0-5.0) % Baso % (Auto) (0.0-2.0) % Neut # (Auto) (1.40-7.00) K/uL Lymph # (Auto) (0.50-3.50) K/uL [place] # (Auto) (0.00-1.00) K/uL Eos # (Auto) (0.00-0.50) K/uL Baso # (Auto) (0.00-0.20) K/uL PT (9.5-12.0) SEC INR APTT (21.0-31.3) SEC D-Dimer, Quantitative (0-400) ng/mL Sodium 141 (136-145) mmol/L Potassium 4.3 (3.5-5.1) mmol/L Chloride 105 (98-107) mmol/L Carbon Dioxide 28.1 (21.0-32.0) mmol/L BUN 17 (7-18) mg/dL Creatinine 0.99 (0.51-1.17) mg/dL Est Cr Clr Drug Dosing 91.33 mL/min Estimated GFR (MDRD) > 60 mL/min Glucose 137 H (74-106) mg/dL Lactic Acid (0.4-2.0) mmol/L Calcium 9.0 (8.5-10.1) mg/dL Magnesium (1.8-2.4) mg/dL Total Bilirubin 0.5 (0.2-1.0) mg/dL AST 19 (15-37) U/L ALT 25 (12-78) U/L Alkaline Phosphatase 62 (46-116) IU/L Total Protein 7.1 (6.4-8.2) g/dL Albumin 3.5 (3.4-5.0) g/dL TSH, Ultra Sensitive (0.358-3.740) mIU/mL Juan Results Last 24 Hours: Microbiology 06/13/19 13:15 Gram Stain - Final Foot, Left Gram stain positive for gram-positive cocci with culture and sensitivity pending. Blood Cultures 2 were collected on 06/13 with results pending Med Orders - Current: Current Medications Acetaminophen (Tylenol) 650 mg PO Q4H PRN PRN Reason: Pain/Fever Brimonidine Tartrate (Alphagan 0.2% Ophth Soln) 0 ml EYEBOTH DAILY [facility] Fenofibrate (Fenofibrate) 134 mg PO BEDTIME [facility] Last Admin: 06/13/19 19:24 Dose: 134 mg Ceftriaxone Sodium 1 gm/ (Sodium Chloride) 100 mls @ 200 mls/hr IV Q12H [facility] Last Admin: 06/14/19 00:13 Dose: 200 mls/hr Lactobacillus Rhamnosus (Culturelle) 2 cap PO BID [facility] Latanoprost (Xalatan 0.005% Ophth Soln) 0 ml EYEBOTH BEDTIME [facility] Losartan Potassium (Cozaar) 50 mg PO DAILY [facility] Last Admin: 06/14/19 07:19 Dose: 50 mg Metformin HCl (Glucophage) 500 mg PO DAILY [facility] Last Admin: 06/14/19 07:19 Dose: 500 mg Metformin HCl (Glucophage) 1,000 mg PO DAILY@1800 [facility] Last Admin: 06/13/19 17:01 Dose: 1,000 mg Neomycin/Polymyxin/Bacitracin (Triple Antibiotic Oint) 1 each TOP DAILY [facility] Last Admin: 06/14/19 07:20 Dose: 1 each Pravastatin Sodium (Pravachol) 40 mg PO BEDTIME [facility] Last Admin: 06/13/19 19:24 Dose: 40 mg Sodium Chloride (Saline Flush) 10 ml FLUSH ASDIRECTED PRN PRN Reason: Keep Vein Open Last Admin: 06/13/19 13:09 Dose: 10 ml Sodium Chloride (Saline Flush) 10 ml FLUSH Q12H [facility] Last Admin: 06/14/19 05:39 Dose: Not Given Temazepam (Restoril) 15 mg PO BEDTIME PRN PRN Reason: Insomnia Timolol Maleate (Timoptic 0.5% Ophth Soln) 0 ml EYEBOTH DAILY [facility] Trimethoprim/Sulfamethoxazole (Septra Ds) 1 tab PO BID [facility] Last Admin: 06/14/19 07:19 Dose: 1 tab Discontinued Medications Acetaminophen (Tylenol) 650 mg PO ONETIME ONE Stop: 06/13/19 12:36 Last Admin: 06/13/19 13:04 Dose: 650 mg Albuterol/Ipratropium (Duoneb 3.0-0.5 Mg/3 Ml) 3 ml NEB Q6HRRT [facility] Ceftriaxone Sodium 1 gm/ (Sodium Chloride) 100 mls @ 200 mls/hr IV ONETIME ONE Stop: 06/13/19 13:04 Last Admin: 06/13/19 13:04 Dose: 200 mls/hr Lactated Ringer's (Ringers, Lactated) 1,000 mls @ 999 mls/hr IV .BOLUS ONE Stop: 06/13/19 15:15 Last Admin: 06/13/19 14:42 Dose: 999 mls/hr Latanoprost (Xalatan 0.005% Ophth Soln) 0 ml EYEBOTH BEDTIME [facility] Last Admin: 06/13/19 20:04 Dose: Not Given Non-Formulary Medication (Brimonidine Tartrate/Timolol [Combigan 0.2%-0.5% Eye Drops]) 1 drop EYEBOTH DAILY MARIA FERNANDA - Exam Quality Assessment: DVT Prophylaxis, Skin Breakdown (Stable grade 2 ulcer of the left foot). No: Supplemental Oxygen, Central Line/PICC, Urine Catheter, Restraints General: Alert, Oriented, Cooperative, No Acute Distress HEENT: Pupils Equal, Pupils Reactive, EOMI, Mucous Membr. Moist/[place], Other (He is wearing glasses). No: Scleral Icterus Neck: Supple, Trachea Midline, No JVD, No Thyromegaly. No: Lymphadenopathy Lungs: Clear to Auscultation, Normal Respiratory Effort. No: Rub Cardiovascular: Regular Rate, Regular Rhythm, No Murmurs. No: Gallops, Rubs GI/Abdominal Exam: Normal Bowel Sounds, Soft, Non-Tender, No Organomegaly, No Distention, No Abnormal Bruit, No Mass. No: Guarding (Male) Exam: Deferred Back Exam: Normal Inspection, Full Range of Motion. No: CVA Tenderness (L), CVA Tenderness (R), Muscle Spasm Extremities: Normal Range of Motion, Pedal Edema (Improved trace to +1 bilateral pedal/pretibial edema, left greater than right), Joint Swelling ( Persistent swelling of digit #3 of the left foot with +3 erythema however improved left dorsal foot swelling with only +2 erythema and significant improved lymphangitis of the left leg, which still does extend to the medial aspect of the left knee. Mild persistent drainage from grade 2 ulcer over the tip of the third left toe and stable left plantar callus with no local signs of infections), Leg Pain (Mild in digit #3 of the left foot), Increased Warmth (As above in left toe and foot), Redness (As above). No: Mitzy's Sign Peripheral Pulses: 2+: Radial (L), Radial (R), Dorsalis Pedis (L), Dorsalis Pedis (R) Skin: Other (As above). No: Ecchymosis Wound/Incisions: Drainage, Erythema Improving Neurological: No New Focal Deficit Psy/Mental Status: Alert, Normal Affect, Normal Mood. No: Agitated, Hallucinations, Withdrawal Symptoms Sepsis Event Note - Evaluation Sepsis Screening Result: No Definite Risk - Focused Exam Vital Signs: Vital Signs Temp Pulse Resp BP BP BP Pulse Ox 06/14/19 07:27 36.7 C 72 16 123/82 95 06/14/19 07:19 123/82 06/14/19 04:00 36.2 C 72 16 128/77 95 06/14/19 00:00 37.0 C 82 14 131/78 95 Date Exam was Performed: 06/14/19 Time Exam was Performed: 09:53 - Problem List & Annotations (1) Cellulitis SNOMED Code(s): 844213626 Code(s): L03.90 - CELLULITIS, UNSPECIFIED Status: Acute Priority: High Current Visit: Yes Onset Date: 06/12/19 Qualifiers: Site of cellulitis: extremity Site of cellulitis of extremity: lower extremity Laterality: left Qualified Code(s): L03.116 - Cellulitis of left lower limb Annotation/Comment:: Improving slowly with aggressive IV Rocephin and oral Bactrim DS therapy. Surgical consultation has been ordered for possible wound debridement with physical therapy yet to evaluate the patient, however order was placed on admission. Secondary to positive CT scan for osteomyelitis patient will need extended outpatient antibiotic therapy and probable subsequent orthopedic surgeon versus podiatry consultation. Various therapeutic options were discussed with the patient in the emergency room, who agreed to admission to inpatient care for aggressive IV antibiotic therapy as above. Additional oral Bactrim DS therapy was also be initiated to rule out possible MRSA. Consider change to IV vancomycin, if MRSA is present secondary to his newly diagnosed osteomyelitis. Specimen collected for Gram stain, culture, and sensitivity with preliminary results as above. Physical therapy consultation for wound care, etc. as above with care to be coordinated with general surgeon. Note that the patient is wanting to claim this as a Workmen's Compensation injury secondary to his foot exposure while cleaning buckets on 06/12 . Note, however, the patient did have a previous grade 2 ulcer in the same area about one week ago with no known previous infection. The patient has initiated appropriate paperwork for Workmen's Compensation claim. Blood Cultures 2 were collected with no evidence of lactic acid elevation, sepsis, etc. His leukocytosis was significantly improved on 06/14. A probiotic was initiated today secondary to aggressive metabolic therapy required as above. (2) Osteomyelitis SNOMED Code(s): 35862257 Code(s): M86.9 - OSTEOMYELITIS, UNSPECIFIED Status: Acute Priority: High Current Visit: Yes Onset Date: 06/13/19 Qualifiers: Osteomyelitis type: other acute Osteomyelitis location: foot Laterality: left Qualified Code(s): M86.172 - Other acute osteomyelitis, left ankle and foot Annotation/Comment:: As above. Podiatry versus orthopedic surgeon consultation with possible amputation on an outpatient basis. Otherwise will likely need 4 weeks of antibiotic therapy and close follow-up. Note surgical consultation today as above. (3) COPD (chronic obstructive pulmonary disease) SNOMED Code(s): 58727233 Code(s): J44.9 - CHRONIC OBSTRUCTIVE PULMONARY DISEASE, UNSPECIFIED Status : Chronic Priority: Medium Current Visit: Yes Qualifiers: COPD type: emphysema Emphysema type: panlobular Qualified Code(s): J43.1 - Panlobular emphysema Annotation/Comment:: Stable by patient history with no recent bronchitic type symptoms. Note no previous medical therapy. Consider PFTs in the future. (4) Diabetes mellitus SNOMED Code(s): 48609389 Code(s): E11.9 - TYPE 2 DIABETES MELLITUS WITHOUT COMPLICATIONS Status: Chronic Priority: Medium Current Visit: Yes Qualifiers: Diabetes mellitus type: type 2 Diabetes mellitus custodial insulin use: without meterman use Diabetes mellitus complication status: with neurologic complications Diabetes mellitus complication detail: with polyneuropathy Qualified Code(s): E11.42 - Type 2 diabetes mellitus with diabetic polyneuropathy Annotation/Comment:: He does not Accu-Cheks at home, however excellent glycosylated hemoglobin in March by his regular provider. Observe for now. (5) Diabetic neuropathy SNOMED Code(s): 412201335, 378707599 Code(s): E11.40 - TYPE 2 DIABETES MELLITUS WITH DIABETIC NEUROPATHY, UNSP Status: Acute Priority: High Current Visit: Yes Onset Date: ~06/13/19 Qualifiers: Diabetes mellitus type: type 2 Diabetes mellitus complication detail: diabetic polyneuropathy Qualified Code(s): E11.42 - Type 2 diabetes mellitus with diabetic polyneuropathy Annotation/Comment:: Probable newly diagnosed diabetic neuropathy secondary to no discomfort from removing callus/eschar from his toe 1 week ago. Close observation by his regular provider on an outpatient basis. (6) Hyperlipidemia SNOMED Code(s): 40366208 Code(s): E78.5 - HYPERLIPIDEMIA, UNSPECIFIED Status: Chronic Priority: Medium Current Visit: Yes Qualifiers: Hyperlipidemia type: mixed hyperlipidemia Qualified Code(s): E78.2 - Mixed hyperlipidemia Annotation/Comment:: Currently under therapy. Continue to observe closely by his regular provider. (7) Hypertension SNOMED Code(s): 16519818 Code(s): I10 - ESSENTIAL (PRIMARY) HYPERTENSION Status: Chronic Priority : Medium Current Visit: Yes Qualifiers: Hypertension type: essential hypertension Qualified Code(s): I10 - Essential (primary) hypertension Annotation/Comment:: Stable in the emergency room and during this hospitalization. (8) Mixed anxiety depressive disorder SNOMED Code(s): 978440558 Code(s): F41.8 - OTHER SPECIFIED ANXIETY DISORDERS Status: Chronic Priority: Medium Current Visit: Yes Annotation/Comment:: Stable by patient history, however note significant stressors at home currently secondary to his having to take care of his son with muscular dystrophy in [place] during the last 1.5 years. Emotional support was provided. (9) Peptic reflux disease SNOMED Code(s): 036158621 Code(s): K21.9 - GASTRO-ESOPHAGEAL REFLUX DISEASE WITHOUT ESOPHAGITIS Status: Chronic Priority: Medium Current Visit: Yes Annotation/Comment:: Stable by history. - Problem List Review Problem List Initiated/Reviewed/Updated: Yes - My Orders Last 24 Hours: My Active Orders 06/13/19 12:35 Cardiac Monitoring [RC] Q2HR Communication Order [RC] DAILY Oxygen Therapy, ED [RC] PRN Sodium Chloride 0.9% [Saline Flush] 10 ml FLUSH ASDIRECTED PRN Blood Culture x2 Reflex Set [OM.PC] Stat Peripheral IV Insertion Adult [OM.PC] Stat Resuscitation Status Routine 06/13/19 12:36 Peripheral IV Care [RC] . DIRECTED 06/13/19 12:40 CULTURE BLOOD [BC] Stat 06/13/19 12:55 CULTURE BLOOD [BC] Stat 06/13/19 13:15 CULTURE WOUND + SMEAR [RM] Stat 06/13/19 14:14 Foot wo Cont Lt [CT] Urgent 06/13/19 14:18 PT Evaluation and Treatment [CONS] Routine 06/13/19 14:20 Antiembolic Devices [RC] .Routine Height and Weight [RC] DAILY Intake and Output Strict [RC] QSHIFT Oxygen Therapy [RC] .PRN Pulse Oximetry [RC] .PRN Vital Signs [RC] Q4HR OCCULT BLOOD DIAGNOSTIC [OP] Routine Temazepam [Restoril] 15 mg PO BEDTIME PRN GM Immunization Reflex [OM.PC] Click To Edit 06/13/19 14:25 Wound Care [RC] DAILY 06/13/19 14:30 Bacitracin/Neomycin/Polymyxin [Triple Antibiotic Oint] 1 each TOP DAILY Sodium Chloride 0.9% [Saline Flush] 10 ml FLUSH Q12H 06/13/19 15:00 Acetaminophen [Tylenol] 650 mg PO Q4H PRN 06/13/19 18:00 Sulfamethoxazole/Trimethoprim [Septra DS] 1 tab PO BID metFORMIN [Glucophage] 1,000 mg PO DAILY@1800 06/13/19 20:00 Fenofibrate,Micronized [Fenofibrate] 134 mg PO BEDTIME Pravastatin [Pravachol] 40 mg PO BEDTIME 06/13/19 Lunch Heart Healthy Diet [DIET] 06/14/19 01:00 cefTRIAXone [Rocephin] 1 gm Sodium Chloride 0.9% [Normal Saline] 100 ml IV Q12H 06/14/19 08:00 Brimonidine [Alphagan 0.2% Ophth Soln] 0 ml EYEBOTH DAILY Losartan [Cozaar] 50 mg PO DAILY metFORMIN [Glucophage] 500 mg PO DAILY timoloL maleate [Timoptic 0.5% Ophth Soln] 0 ml EYEBOTH DAILY 06/14/19 08:51 Consult to Physician [CONS] Routine 06/14/19 08:52 Notify Provider Consults [RC] ASDIRECTED 06/14/19 08:57 Latanoprost [Xalatan 0.005% Ophth Soln] 0 ml EYEBOTH BEDTIME 06/14/19 09:45 Lactobacillus Rhamnosus GG [Culturelle] 2 cap PO BID - Assessment Assessment:: As above - Plan Plan:: As above. Extensive precautions were given to the patient, who is in agreement with the treatment plan. The patient will require about 2-3 days of inpatient/ acute care secondary to multiple health problems as above. Dr. Marquez assumes care in the a.m.
[2019-06-14] MEDS: Lactobacillus Rhamnosus GG (Probiotic) Cap PO SCH ×2 (10:28→17:21)
[2019-06-14] MEDS: TIMOLOL MALEATE 0.25% EYEBOTH SCH (10:28)
[2019-06-14] MEDS: Sodium Chloride 0.9% 10 ML Syringe FLUSH PRN ×2 (12:18→12:19)
[2019-06-14] MEDS: Pravastatin 20 MG Tab PO SCH (20:11)
[2019-06-14] MEDS: Fenofibrate,Micronized 134 MG Cap PO SCH (20:12)
[2019-06-14] MEDS: Latanoprost 0.005% Ophth Soln 2.5 ML Bottle**OWN MED EYEBOTH SCH (20:14)
[2019-06-15] MEDS: cefTRIAXone 1 GM in Sodium Chloride 0.9% 100 ML IV SCH ×2 (00:49→12:34)
[2019-06-15] MEDS: Sodium Chloride 0.9% 10 ML Syringe FLUSH SCH ×5 (00:50→14:34)
[2019-06-15] MEDS: Losartan 50 MG Tab PO SCH (08:32)
[2019-06-15] MEDS: Sulfamethoxazole/Trimethoprim 800-160 MG Tab PO SCH ×2 (08:32→17:30)
[2019-06-15] MEDS: Lactobacillus Rhamnosus GG (Probiotic) Cap PO SCH ×2 (08:32→17:30)
[2019-06-15] MEDS: metFORMIN 500 MG Tab PO SCH ×2 (08:32→17:30)
--- NOTE | 2019-06-15 08:49 | PN ---
Date of Service: 06/14/2019 HISTORY: This 64-year-old gentleman seen in consultation from Dr. Pace for evaluation of the left third toe infection with surrounding cellulitis and edema. He was admitted to the hospital yesterday after being seen in [facility]. About a week ago, he had a callus on the toes that he pulled off, and then, 2 days ago, started having some pain and swelling. He also did have some low-grade fevers. He is seen in the clinic and transferred to the hospital emergency room for further evaluation. At that time, he is evaluated by Dr. Pace. Temperature was 37.2. White blood cell count was elevated at 13.8. Foot x-ray and CT scan were obtained. This shows an abscess as well as osteomyelitis in the third toe. Patient has been on IV Rocephin and oral Bactrim and has made significant improvement. The cellulitis had been up to the level of the knee and is now localized just around the tip of the toe. The edema is much improved also according to the nurse. His labs shows white blood cell count is down to 10.7 today. Cultures are pending, but Gram stain does show gram-positive cocci. PHYSICAL EXAMINATION: GENERAL: Reveals a pleasant gentleman, in no distress. He is lying comfortably in bed. EXTREMITIES: There is no cellulitis past the tip of the toe. There is minimal swelling around the ankle remaining. He does have a hard callus at the tip of the left toe across the entire tip measuring almost a centimeter in diameter. The infection, however, is on the medial portion. I did debride some old skin on that surface. There was no evidence of an abscess. He also has a small callus at the tip of the left fourth toe. I also examined his right foot and he has a large callus on the right third and a small callus on the tip of the right fourth toe. He does wear his same steel-toed boots everyday and I suspect this may be contributing to the pressure and callus formation. He has not seen Podiatry and this is also recommended. ASSESSMENT: Left third toe infection with osteomyelitis. PLAN: The patient will continue the antibiotics since he has made good improvement and possibly change it depending on his cultures. He will need long- term antibiotics until this is resolved and follow up with Podiatry regarding his other toes to prevent future infections. I will see him again on a p.r.n. basis. JENNIFER GUAMAN MD /[id number]
[2019-06-15] MEDS: TIMOLOL MALEATE 0.25% EYEBOTH SCH (08:59)
--- NOTE | 2019-06-15 18:41 | PCM.PN ---
- General Info Date of Service: 06/15/19 Admission Dx/Problem (Free Text): Osteomyelitis left toe/cellulitis in diabetic patient Subjective Update: Pain improved Functional Status: Reports: Pain Controlled, Tolerating Diet, Ambulating, Urinating. Denies: New Symptoms Pain Score: 0 - Review of Systems General: Reports: No Symptoms HEENT: Reports: Glasses Pulmonary: Reports: No Symptoms Cardiovascular: Reports: No Symptoms Gastrointestinal: Reports: No Symptoms Genitourinary: Reports: No Symptoms Musculoskeletal: Reports: Other (No acute changes from baseline) Skin: Reports: Other (left 3rd toe swollen, red) Neurological: Reports: No Symptoms Psychiatric: Reports: No Symptoms - Patient Data Vitals - Most Recent: Last Vital Signs Temp 36.5 C 06/15/19 12:00 Pulse 87 06/15/19 12:00 Resp 16 06/15/19 12:00 BP 141/81 H 06/15/19 12:00 Pulse Ox 97 06/15/19 12:00 Weight - Most Recent: 104.462 kg I&O - Last 24 Hours: Intake & Output 06/15/19 06/15/19 06/15/19 06:59 14:59 22:59 Intake Total 460 200 Output Total 900 1000 Balance -900 -540 200 Juan Results Last 24 Hours: Microbiology 06/13/19 12:55 Aerobic Blood Culture - Preliminary Blood - Venous - Lab Draw NO GROWTH AFTER 2 DAYS Anaerobic Blood Culture - Preliminary NO GROWTH AFTER 2 DAYS 06/13/19 12:40 Aerobic Blood Culture - Preliminary Blood - Venous NO GROWTH AFTER 2 DAYS Anaerobic Blood Culture - Preliminary NO GROWTH AFTER 2 DAYS 06/15/19 11:55 Stool Occult Blood (JUAN) - Final Stool / Feces NEGATIVE OCCULT BLOOD REFERENCE RANGE: NEGATIVE 06/13/19 13:15 Gram Stain - Final Foot, Left Wound Culture - Preliminary Med Orders - Current: Current Medications Acetaminophen (Tylenol) 650 mg PO Q4H PRN PRN Reason: Pain/Fever Fenofibrate (Fenofibrate) 134 mg PO BEDTIME [facility] Last Admin: 06/14/19 20:12 Dose: 134 mg Ceftriaxone Sodium 1 gm/ (Sodium Chloride) 100 mls @ 200 mls/hr IV Q12H [facility] Last Admin: 06/15/19 12:34 Dose: 200 mls/hr Lactobacillus Rhamnosus (Culturelle) 2 cap PO BID [facility] Last Admin: 06/15/19 17:30 Dose: 2 cap Latanoprost (Xalatan 0.005% Ophth Soln) 0 ml EYEBOTH BEDTIME [facility] Last Admin: 06/14/19 20:14 Dose: 1 drop Losartan Potassium (Cozaar) 50 mg PO DAILY [facility] Last Admin: 06/15/19 08:32 Dose: 50 mg Metformin HCl (Glucophage) 500 mg PO DAILY [facility] Last Admin: 06/15/19 08:32 Dose: 500 mg Metformin HCl (Glucophage) 1,000 mg PO DAILY@1800 [facility] Last Admin: 06/15/19 17:30 Dose: 1,000 mg Pravastatin Sodium (Pravachol) 40 mg PO BEDTIME [facility] Last Admin: 06/14/19 20:11 Dose: 40 mg Sodium Chloride (Saline Flush) 10 ml FLUSH ASDIRECTED PRN PRN Reason: Keep Vein Open Last Admin: 06/14/19 12:19 Dose: 10 ml Sodium Chloride (Saline Flush) 10 ml FLUSH Q12H [facility] Last Admin: 06/15/19 14:34 Dose: Not Given Temazepam (Restoril) 15 mg PO BEDTIME PRN PRN Reason: Insomnia Timolol Maleate (Timoptic 0.25% Ophth Soln) 0 ml EYEBOTH DAILY [facility] Last Admin: 06/15/19 08:59 Dose: 1 drop Trimethoprim/Sulfamethoxazole (Septra Ds) 1 tab PO BID [facility] Last Admin: 06/15/19 17:30 Dose: 1 tab Discontinued Medications Acetaminophen (Tylenol) 650 mg PO ONETIME ONE Stop: 06/13/19 12:36 Last Admin: 06/13/19 13:04 Dose: 650 mg Albuterol/Ipratropium (Duoneb 3.0-0.5 Mg/3 Ml) 3 ml NEB Q6HRRT [facility] Brimonidine Tartrate (Alphagan 0.2% Ophth Soln) 0 ml EYEBOTH DAILY [facility] Last Admin: 06/14/19 10:12 Dose: Not Given Ceftriaxone Sodium 1 gm/ (Sodium Chloride) 100 mls @ 200 mls/hr IV ONETIME ONE Stop: 06/13/19 13:04 Last Admin: 06/13/19 13:04 Dose: 200 mls/hr Lactated Ringer's (Ringers, Lactated) 1,000 mls @ 999 mls/hr IV .BOLUS ONE Stop: 06/13/19 15:15 Last Admin: 06/13/19 14:42 Dose: 999 mls/hr Latanoprost (Xalatan 0.005% Ophth Soln) 0 ml EYEBOTH BEDTIME [facility] Last Admin: 06/13/19 20:04 Dose: Not Given Neomycin/Polymyxin/Bacitracin (Triple Antibiotic Oint) 1 each TOP DAILY [facility] Last Admin: 06/14/19 07:20 Dose: 1 each Non-Formulary Medication (Brimonidine Tartrate/Timolol [Combigan 0.2%-0.5% Eye Drops]) 1 drop EYEBOTH DAILY [facility] Timolol Maleate (Timoptic 0.5% Ophth Soln) 0 ml EYEBOTH DAILY [facility] Last Admin: 06/14/19 10:11 Dose: Not Given - Exam Quality Assessment: DVT Prophylaxis General: Alert, Oriented, Cooperative, No Acute Distress HEENT: Pupils Equal, Pupils Reactive, EOMI, Mucous Membr. Moist/[place] Neck: Supple Lungs: Clear to Auscultation, Normal Respiratory Effort Cardiovascular: Regular Rate, Regular Rhythm GI/Abdominal Exam: Soft, Non-Tender (Male) Exam: Deferred Back Exam: No: Muscle Spasm Extremities: Normal Range of Motion, Normal Capillary Refill, Other (left 3rd toe swollen, erosion of skin where debrided. No active drainage. Left toe/top of foot distally has some redness and warmth. ) Skin: Warm Wound/Incisions: No Drainage Neurological: No New Focal Deficit Psy/Mental Status: Alert, Normal Affect, Normal Mood Sepsis Event Note - Evaluation Sepsis Screening Result: No Definite Risk - Focused Exam Vital Signs: Vital Signs Temp Pulse Resp BP BP Pulse Ox 06/15/19 12:00 36.5 C 87 16 141/81 H 97 06/15/19 08:32 132/76 06/15/19 07:54 36.6 C 81 17 132/76 97 Date Exam was Performed: 06/15/19 Time Exam was Performed: 18:31 - Problem List & Annotations (1) Cellulitis SNOMED Code(s): 117997583 Code(s): L03.90 - CELLULITIS, UNSPECIFIED Status: Acute Priority: High Current Visit: Yes Onset Date: 06/12/19 Qualifiers: Site of cellulitis: extremity Site of cellulitis of extremity: lower extremity Laterality: left Qualified Code(s): L03.116 - Cellulitis of left lower limb Annotation/Comment:: Improving slowly with aggressive IV Rocephin and oral Bactrim DS therapy. Surgical consultation has been ordered for possible wound debridement with physical therapy yet to evaluate the patient, however order was placed on admission. Secondary to positive CT scan for osteomyelitis patient will need extended outpatient antibiotic therapy and probable subsequent orthopedic surgeon versus podiatry consultation. Various therapeutic options were discussed with the patient in the emergency room, who agreed to admission to inpatient care for aggressive IV antibiotic therapy as above. Additional oral Bactrim DS therapy was also be initiated to rule out possible MRSA. Consider change to IV vancomycin, if MRSA is present secondary to his newly diagnosed osteomyelitis. Specimen collected for Gram stain, culture, and sensitivity with preliminary results as above. Physical therapy consultation for wound care, etc. as above with care to be coordinated with general surgeon. Note that the patient is wanting to claim this as a Workmen's Compensation injury secondary to his foot exposure while cleaning buckets on 06/12 . Note, however, the patient did have a previous grade 2 ulcer in the same area about one week ago with no known previous infection. The patient has initiated appropriate paperwork for Workmen's Compensation claim. Blood Cultures 2 were collected with no evidence of lactic acid elevation, sepsis, etc. Cultures currently negative. His leukocytosis is improving. A probiotic was initiated today secondary to aggressive metabolic therapy required as above. (2) Osteomyelitis SNOMED Code(s): 68715159 Code(s): M86.9 - OSTEOMYELITIS, UNSPECIFIED Status: Acute Priority: High Current Visit: Yes Onset Date: 06/13/19 Qualifiers: Osteomyelitis type: other acute Osteomyelitis location: foot Laterality: left Qualified Code(s): M86.172 - Other acute osteomyelitis, left ankle and foot Annotation/Comment:: Possible amputation on an outpatient basis if fails antibiotics. Will likely need 4 weeks of antibiotic therapy. Podiatry appointment pending July 01. Debrided by surgery yesterday. Refer to surgeon' s note regarding procedure. (3) Diabetic neuropathy SNOMED Code(s): 830732118, 245266358 Code(s): E11.40 - TYPE 2 DIABETES MELLITUS WITH DIABETIC NEUROPATHY, UNSP Status: Acute Priority: High Current Visit: Yes Onset Date: ~06/13/19 Qualifiers: Diabetes mellitus type: type 2 Diabetes mellitus complication detail: diabetic polyneuropathy Qualified Code(s): E11.42 - Type 2 diabetes mellitus with diabetic polyneuropathy Annotation/Comment:: Probable newly diagnosed diabetic neuropathy secondary to no discomfort from removing callus/eschar from his toe 1 week ago. Close observation by his regular provider on an outpatient basis. (4) COPD (chronic obstructive pulmonary disease) SNOMED Code(s): 41359108 Code(s): J44.9 - CHRONIC OBSTRUCTIVE PULMONARY DISEASE, UNSPECIFIED Status : Chronic Priority: Medium Current Visit: Yes Qualifiers: COPD type: emphysema Emphysema type: panlobular Qualified Code(s): J43.1 - Panlobular emphysema Annotation/Comment:: Stable by patient history with no recent bronchitic type symptoms. Note no previous medical therapy. Consider PFTs in the future. 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 Observe for now. (6) Hyperlipidemia SNOMED Code(s): 55693241 Code(s): E78.5 - HYPERLIPIDEMIA, UNSPECIFIED Status: Chronic Priority: Medium Current Visit: Yes Qualifiers: Hyperlipidemia type: mixed hyperlipidemia Qualified Code(s): E78.2 - Mixed hyperlipidemia Annotation/Comment:: Currently under therapy. Continue to observe closely by his regular provider. (7) Hypertension SNOMED Code(s): 31268144 Code(s): I10 - ESSENTIAL (PRIMARY) HYPERTENSION Status: Chronic Priority : Medium Current Visit: Yes Qualifiers: Hypertension type: essential hypertension Qualified Code(s): I10 - Essential (primary) hypertension Annotation/Comment:: Stable in the emergency room and during this hospitalization. (8) Mixed anxiety depressive disorder SNOMED Code(s): 345579806 Code(s): F41.8 - OTHER SPECIFIED ANXIETY DISORDERS Status: Chronic Priority: Medium Current Visit: Yes Annotation/Comment:: Stable by patient history, however note significant stressors at home currently secondary to his having to take care of his son with muscular dystrophy in [place] during the last 1.5 years. Emotional support was provided. (9) Peptic reflux disease SNOMED Code(s): 165702716 Code(s): K21.9 - GASTRO-ESOPHAGEAL REFLUX DISEASE WITHOUT ESOPHAGITIS Status: Chronic Priority: Medium Current Visit: Yes Annotation/Comment:: Stable by history. - Problem List Review Problem List Initiated/Reviewed/Updated: Yes - Assessment Assessment:: As above - Plan Plan:: As above. Extensive precautions were given to the patient, who is in agreement with the treatment plan. The patient will require additional 2 1/2 days of inpatient care as he is receiving IV antibiotics. Anticipate discharge home Tuesday if he continues to do well. Pharmacies will reopen at at time so that patient able to mixing picker tender antibiotics.
[2019-06-15] MEDS: Pravastatin 20 MG Tab PO SCH (20:41)
[2019-06-15] MEDS: Fenofibrate,Micronized 134 MG Cap PO SCH (20:42)
[2019-06-15] MEDS: Latanoprost 0.005% Ophth Soln 2.5 ML Bottle**OWN MED EYEBOTH SCH (20:44)
[2019-06-16] MEDS: cefTRIAXone 1 GM in Sodium Chloride 0.9% 100 ML IV SCH ×2 (00:11→13:09)
[2019-06-16] MEDS: Sodium Chloride 0.9% 10 ML Syringe FLUSH SCH ×3 (00:12→14:45)
[2019-06-16] MEDS: metFORMIN 500 MG Tab PO SCH ×2 (09:04→17:15)
[2019-06-16] MEDS: Sulfamethoxazole/Trimethoprim 800-160 MG Tab PO SCH (09:04)
[2019-06-16] MEDS: Losartan 50 MG Tab PO SCH (09:04)
[2019-06-16] MEDS: Lactobacillus Rhamnosus GG (Probiotic) Cap PO SCH ×2 (09:04→17:16)
[2019-06-16] MEDS: TIMOLOL MALEATE 0.25% EYEBOTH SCH (09:05)
[2019-06-16] MEDS: Sodium Chloride 0.9% 10 ML Syringe FLUSH PRN ×2 (13:09→17:04)
--- NOTE | 2019-06-16 15:38 | PCM.PN ---
- General Info Date of Service: 06/16/19 Admission Dx/Problem (Free Text): Osteomyelitis left toe/cellulitis in diabetic patient Subjective Update: Pain is improved overall. No new complaints. Functional Status: Reports: Pain Controlled, Tolerating Diet, Ambulating, Urinating. Denies: New Symptoms - Review of Systems General: Reports: No Symptoms HEENT: Reports: No Symptoms (no acute changes) Pulmonary: Reports: No Symptoms Cardiovascular: Reports: No Symptoms Gastrointestinal: Reports: No Symptoms Genitourinary: Reports: No Symptoms Musculoskeletal: Reports: Other (left toe pain/foot discomfort) Skin: Reports: Other (Osteomyelitis/toe ulcer left foot) Neurological: Reports: No Symptoms Psychiatric: Reports: No Symptoms - Patient Data Vitals - Most Recent: Last Vital Signs Temp 36.7 C 06/16/19 12:00 Pulse 67 06/16/19 12:00 Resp 18 06/16/19 12:00 BP 109/70 06/16/19 12:00 Pulse Ox 97 06/16/19 12:00 Weight - Most Recent: 104.462 kg I&O - Last 24 Hours: Intake & Output 06/16/19 06/16/19 06/16/19 06:59 14:59 22:59 Intake Total 700 600 Output Total 1300 Balance -600 600 Juan Results Last 24 Hours: Microbiology 06/13/19 12:55 Aerobic Blood Culture - Preliminary Blood - Venous - Lab Draw NO GROWTH AFTER 3 DAYS Anaerobic Blood Culture - Preliminary NO GROWTH AFTER 3 DAYS 06/13/19 12:40 Aerobic Blood Culture - Preliminary Blood - Venous NO GROWTH AFTER 3 DAYS Anaerobic Blood Culture - Preliminary NO GROWTH AFTER 3 DAYS 06/13/19 13:15 Gram Stain - Final Foot, Left Wound Culture - Final Staphylococcus Haemolyticus 06/15/19 11:55 Stool Occult Blood (JUAN) - Final Stool / Feces NEGATIVE OCCULT BLOOD REFERENCE RANGE: NEGATIVE Med Orders - Current: Current Medications Acetaminophen (Tylenol) 650 mg PO Q4H PRN PRN Reason: Pain/Fever Enoxaparin Sodium (Lovenox) 40 mg SUBCUT DAILY [facility] FERNANDA Fenofibrate (Fenofibrate) 134 mg PO BEDTIME [facility] FERNANDA Last Admin: 06/15/19 20:42 Dose: 134 mg Clindamycin/Sodium Chloride (600 mg/ Premix) 50 mls @ 150 mls/hr IV Q8H [facility] FERNANDA Lactobacillus Rhamnosus (Culturelle) 2 cap PO BID [facility]IA FERNANDA Last Admin: 06/16/19 09:04 Dose: 2 cap Latanoprost (Xalatan 0.005% Ophth Soln) 0 ml EYEBOTH BEDTIME [facility] Last Admin: 06/15/19 20:44 Dose: 1 drop Losartan Potassium (Cozaar) 50 mg PO DAILY [facility] Last Admin: 06/16/19 09:04 Dose: 50 mg Metformin HCl (Glucophage) 500 mg PO DAILY [facility] Last Admin: 06/16/19 09:04 Dose: 500 mg Metformin HCl (Glucophage) 1,000 mg PO DAILY@1800 [facility] Last Admin: 06/15/19 17:30 Dose: 1,000 mg Pravastatin Sodium (Pravachol) 40 mg PO BEDTIME [facility] Last Admin: 06/15/19 20:41 Dose: 40 mg Sodium Chloride (Saline Flush) 10 ml FLUSH ASDIRECTED PRN PRN Reason: Keep Vein Open Last Admin: 06/16/19 13:09 Dose: 10 ml Sodium Chloride (Saline Flush) 10 ml FLUSH Q12H [facility] Last Admin: 06/16/19 14:45 Dose: Not Given Temazepam (Restoril) 15 mg PO BEDTIME PRN PRN Reason: Insomnia Timolol Maleate (Timoptic 0.25% Ophth Soln) 0 ml EYEBOTH DAILY [facility] Last Admin: 06/16/19 09:05 Dose: 1 drop Discontinued Medications Acetaminophen (Tylenol) 650 mg PO ONETIME ONE Stop: 06/13/19 12:36 Last Admin: 06/13/19 13:04 Dose: 650 mg Albuterol/Ipratropium (Duoneb 3.0-0.5 Mg/3 Ml) 3 ml NEB Q6HRRT [facility] Brimonidine Tartrate (Alphagan 0.2% Ophth Soln) 0 ml EYEBOTH DAILY [facility] Last Admin: 06/14/19 10:12 Dose: Not Given Ceftriaxone Sodium 1 gm/ (Sodium Chloride) 100 mls @ 200 mls/hr IV ONETIME ONE Stop: 06/13/19 13:04 Last Admin: 06/13/19 13:04 Dose: 200 mls/hr Lactated Ringer's (Ringers, Lactated) 1,000 mls @ 999 mls/hr IV .BOLUS ONE Stop: 06/13/19 15:15 Last Admin: 06/13/19 14:42 Dose: 999 mls/hr Ceftriaxone Sodium 1 gm/ (Sodium Chloride) 100 mls @ 200 mls/hr IV Q12H [facility] Last Admin: 06/16/19 13:09 Dose: 200 mls/hr Latanoprost (Xalatan 0.005% Oph Soln) 0 ml EYEBOTH BEDTIME [facility] Last Admin: 06/13/19 20:04 Dose: Not Given Neomycin/Polymyxin/Bacitracin (Triple Antibiotic Oint) 1 each TOP DAILY [facility] Last Admin: 06/14/19 07:20 Dose: 1 each Non-Formulary Medication (Brimonidine Tartrate/Timolol [Combigan 0.2%-0.5% Eye Drops]) 1 drop EYEBOTH DAILY [facility] Timolol Maleate (Timoptic 0.5% Oph Soln) 0 ml EYEBOTH DAILY [facility] Last Admin: 06/14/19 10:11 Dose: Not Given Trimethoprim/Sulfamethoxazole (Septra Ds) 1 tab PO BID [facility] Last Admin: 06/16/19 09:04 Dose: 1 tab - Exam Quality Assessment: DVT Prophylaxis General: Alert, Oriented, Cooperative, No Acute Distress HEENT: Pupils Equal, Pupils Reactive, EOMI, Mucous Membr. Moist/[place] Neck: Supple Lungs: Clear to Auscultation, Normal Respiratory Effort Cardiovascular: Regular Rate, Regular Rhythm GI/Abdominal Exam: Normal Bowel Sounds, Soft, Non-Tender, No Distention (Male) Exam: Deferred Back Exam: No: Muscle Spasm Extremities: Normal Range of Motion, Increased Warmth, Other (tenderness left 3rd toe) Skin: Warm, Dry, Other (ulcer left 3rd toe) Wound/Incisions: Dressing Dry and Intact Neurological: No New Focal Deficit Psy/Mental Status: Alert, Normal Affect, Normal Mood Sepsis Event Note - Evaluation Sepsis Screening Result: No Definite Risk - Focused Exam Vital Signs: Vital Signs Temp Pulse Resp BP BP Pulse Ox 06/16/19 12:00 36.7 C 67 18 109/70 97 06/16/19 09:04 120/74 06/16/19 08:04 36.3 C 62 16 126/74 96 06/16/19 06:00 36.9 C 62 16 128/79 96 Date Exam was Performed: 06/16/19 Time Exam was Performed: 15:38 - Problem List & Annotations (1) Cellulitis SNOMED Code(s): 047613332 Code(s): L03.90 - CELLULITIS, UNSPECIFIED Status: Acute Priority: High Current Visit: Yes Onset Date: 06/12/19 Qualifiers: Site of cellulitis: extremity Site of cellulitis of extremity: lower extremity Laterality: left Qualified Code(s): L03.116 - Cellulitis of left lower limb Annotation/Comment:: Cellulitis left 3rd toe. Improving. Culture showed Staph Haemolyticus. Antibiotics switched to IV Clindamycin based on sensitivity results. See note from 's regarding surgical consult. Secondary to positive CT scan for osteomyelitis patient will need extended outpatient antibiotic therapy. Follow up appointment with [facility] obtained for July 01 per nursing staff. Physical therapy consultation for wound care, etc. as above with care to be coordinated with general surgeon. Note that the patient is wanting to claim this as a Workmen's Compensation injury secondary to his foot exposure while cleaning buckets on 06/12 . Note, however, the patient did have a previous grade 2 ulcer in the same area about one week ago with no known previous infection. The patient has initiated appropriate paperwork for Workmen's Compensation claim. Blood Cultures negative. His leukocytosis is improving. A probiotic was initiated today secondary to aggressive metabolic therapy required as above. (2) Osteomyelitis SNOMED Code(s): 26145915 Code(s): M86.9 - OSTEOMYELITIS, UNSPECIFIED Status: Acute Priority: High Current Visit: Yes Onset Date: 06/13/19 Qualifiers: Osteomyelitis type: other acute Osteomyelitis location: foot Laterality: left Qualified Code(s): M86.172 - Other acute osteomyelitis, left ankle and foot Annotation/Comment:: Left middle toe. Possible amputation on an outpatient basis if fails antibiotics. Will likely need 4 weeks of antibiotic therapy. Podiatry appointment pending July 01. Debrided by surgery . Refer to surgeon's note regarding procedure. (3) Diabetic neuropathy SNOMED Code(s): 448016083, 607034006 Code(s): E11.40 - TYPE 2 DIABETES MELLITUS WITH DIABETIC NEUROPATHY, UNSP Status: Acute Priority: High Current Visit: Yes Onset Date: ~06/13/19 Qualifiers: Diabetes mellitus type: type 2 Diabetes mellitus complication detail: diabetic polyneuropathy Qualified Code(s): E11.42 - Type 2 diabetes mellitus with diabetic polyneuropathy Annotation/Comment:: Probable newly diagnosed diabetic neuropathy secondary to no discomfort from removing callus/eschar from his toe 1 week ago. Close observation by his regular provider on an outpatient basis. (4) COPD (chronic obstructive pulmonary disease) SNOMED Code(s): 99776410 Code(s): J44.9 - CHRONIC OBSTRUCTIVE PULMONARY DISEASE, UNSPECIFIED Status : Chronic Priority: Medium Current Visit: Yes Qualifiers: COPD type: emphysema Emphysema type: panlobular Qualified Code(s): J43.1 - Panlobular emphysema Annotation/Comment:: Stable by patient history with no recent bronchitic type symptoms. Note no previous medical therapy. Consider PFTs in the future. (5) Diabetes mellitus SNOMED Code(s): 30974778 Code(s): E11.9 - TYPE 2 DIABETES MELLITUS WITHOUT COMPLICATIONS Status: Chronic Priority: Medium Current Visit: Yes Qualifiers: Diabetes mellitus type: type 2 Diabetes mellitus custodial insulin use: without rn long term care use Diabetes mellitus complication status: with neurologic complications Diabetes mellitus complication detail: with polyneuropathy Qualified Code(s): E11.42 - Type 2 diabetes mellitus with diabetic polyneuropathy Annotation/Comment:: He does not Accu-Cheks at home, however excellent glycosylated hemoglobin in March by his regular provider. Observe for now. (6) Hyperlipidemia SNOMED Code(s): 99681241 Code(s): E78.5 - HYPERLIPIDEMIA, UNSPECIFIED Status: Chronic Priority: Medium Current Visit: Yes Qualifiers: Hyperlipidemia type: mixed hyperlipidemia Qualified Code(s): E78.2 - Mixed hyperlipidemia Annotation/Comment:: Currently under therapy. Continue to observe closely by his regular provider. (7) Hypertension SNOMED Code(s): 88590919 Code(s): I10 - ESSENTIAL (PRIMARY) HYPERTENSION Status: Chronic Priority : Medium Current Visit: Yes Qualifiers: Hypertension type: essential hypertension Qualified Code(s): I10 - Essential (primary) hypertension Annotation/Comment:: Stable in the emergency room and during this hospitalization. (8) Mixed anxiety depressive disorder SNOMED Code(s): 151674727 Code(s): F41.8 - OTHER SPECIFIED ANXIETY DISORDERS Status: Chronic Priority: Medium Current Visit: Yes Annotation/Comment:: Stable by patient history, however note significant stressors at home currently secondary to his having to take care of his son with muscular dystrophy in [place] during the last 1.5 years. Emotional support was provided. (9) Peptic reflux disease SNOMED Code(s): 655253731 Code(s): K21.9 - GASTRO-ESOPHAGEAL REFLUX DISEASE WITHOUT ESOPHAGITIS Status: Chronic Priority: Medium Current Visit: Yes Annotation/Comment:: Stable by history. - Problem List Review Problem List Initiated/Reviewed/Updated: Yes - My Orders Last 24 Hours: My Active Orders 06/15/19 19:24 Ambulate [RC] PER UNIT ROUTINE 06/16/19 15:45 Clindamycin in 0.9 % Sod Chlor [Cleocin in NS] 600 mg Premix Bag 1 bag IV Q8H Enoxaparin [Lovenox] 40 mg SUBCUT DAILY 06/17/19 05:11 COMPREHENSIVE METABOLIC PN,CMP [CHEM] AM 06/17/19 05:15 CBC WITH AUTO DIFF [HEME] AM - Assessment Assessment:: As above - Plan Plan:: As above. Extensive precautions were given to the patient, who is in agreement with the treatment plan. The patient will require additional 1 1/2 days of inpatient care as he is receiving IV antibiotics. Anticipate discharge home Tuesday if he continues to improve. 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
[2019-06-16] MEDS: Clindamycin in 0.9 % Sod Chlor 600 MG in Premix Bag 1 BAG IV SCH ×2 (17:04)
[2019-06-16] MEDS: Enoxaparin 40 MG/0.4 ML Syringe SUBCUT SCH (17:25)
[2019-06-16] MEDS: Latanoprost 0.005% Ophth Soln 2.5 ML Bottle**OWN MED EYEBOTH SCH (20:50)
[2019-06-16] MEDS: Pravastatin 20 MG Tab PO SCH (20:50)
[2019-06-16] MEDS: Fenofibrate,Micronized 134 MG Cap PO SCH (20:50)
[2019-06-17] MEDS: Sodium Chloride 0.9% 10 ML Syringe FLUSH SCH ×2 (03:21→14:32)
[2019-06-17] MEDS: Clindamycin in 0.9 % Sod Chlor 600 MG in Premix Bag 1 BAG IV SCH ×6 (07:48→17:16)
[2019-06-17] MEDS: Losartan 50 MG Tab PO SCH (07:48)
[2019-06-17] MEDS: Lactobacillus Rhamnosus GG (Probiotic) Cap PO SCH ×2 (07:48→17:16)
[2019-06-17] MEDS: Enoxaparin 40 MG/0.4 ML Syringe SUBCUT SCH (07:52)
[2019-06-17] MEDS: metFORMIN 500 MG Tab PO SCH ×2 (07:52→17:16)
[2019-06-17] MEDS: TIMOLOL MALEATE 0.25% EYEBOTH SCH (07:54)
--- NOTE | 2019-06-17 12:01 | PCM.PN ---
- General Info Date of Service: 06/17/19 Admission Dx/Problem (Free Text): Osteomyelitis left toe/cellulitis in diabetic patient Subjective Update: Pain is improved overall. No new complaints. Functional Status: Reports: Pain Controlled, Tolerating Diet, Ambulating. Denies: New Symptoms - Review of Systems General: Reports: No Symptoms HEENT: Denies: Headaches, Visual Changes Pulmonary: Reports: No Symptoms Cardiovascular: Reports: No Symptoms Gastrointestinal: Reports: No Symptoms Genitourinary: Reports: No Symptoms Musculoskeletal: Reports: Joint Swelling (left middle toe), Other (left middle toe pain) Skin: Reports: Other (ulcer left middle toe, toe pain and swelling) Neurological: Reports: No Symptoms Psychiatric: Reports: No Symptoms - Patient Data Vitals - Most Recent: Last Vital Signs Temp 36.6 C 06/17/19 07:59 Pulse 68 06/17/19 07:59 Resp 20 06/17/19 07:59 BP 130/77 06/17/19 07:59 Pulse Ox 98 06/17/19 07:59 Weight - Most Recent: 103.782 kg I&O - Last 24 Hours: Intake & Output 06/16/19 06/17/19 06/17/19 22:59 06:59 14:59 Intake Total 675 1050 240 Output Total 700 1600 Balance -25 -550 240 Lab Results Last 24 Hours: Laboratory Results - last 24 hr 06/17/19 06/17/19 Range/Units 07:37 07:37 WBC 6.4 (4.0-10.2) K/uL RBC 4.48 (4.33-5.41) M/uL Hgb 13.5 (13.1-16.8) g/dL Hct 41.0 (39.0-49.0) % MCV 91.5 (84.0-98.0) fL MCH 30.1 (28.2-33.3) pg MCHC 32.9 (31.7-36.0) g/dL RDW 12.7 (11.2-14.1) % Plt Count 180 (150-350) K/uL Neut % (Auto) 65.8 (45.0-80.0) % Lymph % (Auto) 20.6 (10.0-50.0) % [place] % (Auto) 8.7 (2.0-14.0) % Eos % (Auto) 4.6 (0.0-5.0) % Baso % (Auto) 0.3 (0.0-2.0) % Neut # (Auto) 4.18 (1.40-7.00) K/uL Lymph # (Auto) 1.31 (0.50-3.50) K/uL [place] # (Auto) 0.55 (0.00-1.00) K/uL Eos # (Auto) 0.29 (0.00-0.50) K/uL Baso # (Auto) 0.02 (0.00-0.20) K/uL Sodium 140 (136-145) mmol/L Potassium 4.5 (3.5-5.1) mmol/L Chloride 102 (98-107) mmol/L Carbon Dioxide 29.2 (21.0-32.0) mmol/L BUN 9 (7-18) mg/dL Creatinine 1.24 H (0.51-1.17) mg/dL Est Cr Clr Drug Dosing 72.92 mL/min Estimated GFR (MDRD) 59 mL/min Glucose 115 H (74-106) mg/dL Calcium 9.4 (8.5-10.1) mg/dL Total Bilirubin 0.4 (0.2-1.0) mg/dL AST 24 (15-37) U/L ALT 32 (12-78) U/L Alkaline Phosphatase 63 (46-116) IU/L Total Protein 7.7 (6.4-8.2) g/dL Albumin 3.8 (3.4-5.0) g/dL Juan Results Last 24 Hours: Microbiology 06/13/19 12:55 Aerobic Blood Culture - Preliminary Blood - Venous - Lab Draw NO GROWTH AFTER 3 DAYS Anaerobic Blood Culture - Preliminary NO GROWTH AFTER 3 DAYS 06/13/19 12:40 Aerobic Blood Culture - Preliminary Blood - Venous NO GROWTH AFTER 3 DAYS Anaerobic Blood Culture - Preliminary NO GROWTH AFTER 3 DAYS 06/13/19 13:15 Gram Stain - Final Foot, Left Wound Culture - Final Staphylococcus Haemolyticus Med Orders - Current: Current Medications Acetaminophen (Tylenol) 650 mg PO Q4H PRN PRN Reason: Pain/Fever Enoxaparin Sodium (Lovenox) 40 mg SUBCUT DAILY [facility] Last Admin: 06/17/19 07:52 Dose: Not Given Fenofibrate (Fenofibrate) 134 mg PO BEDTIME [facility] Last Admin: 06/16/19 20:50 Dose: 134 mg Clindamycin/Sodium Chloride (600 mg/ Premix) 50 mls @ 150 mls/hr IV Q8H [facility] Last Admin: 06/17/19 07:48 Dose: 150 mls/hr Lactobacillus Rhamnosus (Culturelle) 2 cap PO BID [facility] Last Admin: 06/17/19 07:48 Dose: 2 cap Latanoprost (Xalatan 0.005% Ophth Soln) 0 ml EYEBOTH BEDTIME [facility] Last Admin: 06/16/19 20:50 Dose: 1 drop Losartan Potassium (Cozaar) 50 mg PO DAILY [facility] Last Admin: 06/17/19 07:48 Dose: 50 mg Metformin HCl (Glucophage) 500 mg PO DAILY [facility] Last Admin: 06/17/19 07:52 Dose: 500 mg Metformin HCl (Glucophage) 1,000 mg PO DAILY@1800 [facility] Last Admin: 06/16/19 17:15 Dose: 1,000 mg Pravastatin Sodium (Pravachol) 40 mg PO BEDTIME [facility] Last Admin: 06/16/19 20:50 Dose: 40 mg Sodium Chloride (Saline Flush) 10 ml FLUSH ASDIRECTED PRN PRN Reason: Keep Vein Open Last Admin: 06/17/19 00:00 Dose: 10 ml Sodium Chloride (Saline Flush) 10 ml FLUSH Q12H [facility] Last Admin: 06/17/19 03:21 Dose: Not Given Temazepam (Restoril) 15 mg PO BEDTIME PRN PRN Reason: Insomnia Timolol Maleate (Timoptic 0.25% Ophth Soln) 0 ml EYEBOTH DAILY [facility] Last Admin: 06/17/19 07:54 Dose: 1 drop Discontinued Medications Acetaminophen (Tylenol) 650 mg PO ONETIME ONE Stop: 06/13/19 12:36 Last Admin: 06/13/19 13:04 Dose: 650 mg Albuterol/Ipratropium (Duoneb 3.0-0.5 Mg/3 Ml) 3 ml NEB Q6HRRT [facility] Brimonidine Tartrate (Alphagan 0.2% Ophth Soln) 0 ml EYEBOTH DAILY [facility] Last Admin: 06/14/19 10:12 Dose: Not Given Ceftriaxone Sodium 1 gm/ (Sodium Chloride) 100 mls @ 200 mls/hr IV ONETIME ONE Stop: 06/13/19 13:04 Last Admin: 06/13/19 13:04 Dose: 200 mls/hr Lactated Ringer's (Ringers, Lactated) 1,000 mls @ 999 mls/hr IV .BOLUS ONE Stop: 06/13/19 15:15 Last Admin: 06/13/19 14:42 Dose: 999 mls/hr Ceftriaxone Sodium 1 gm/ (Sodium Chloride) 100 mls @ 200 mls/hr IV Q12H [facility] Last Admin: 06/16/19 13:09 Dose: 200 mls/hr Latanoprost (Xalatan 0.005% Ophth Soln) 0 ml EYEBOTH BEDTIME [facility] Last Admin: 06/13/19 20:04 Dose: Not Given Neomycin/Polymyxin/Bacitracin (Triple Antibiotic Oint) 1 each TOP DAILY [facility] Last Admin: 06/14/19 07:20 Dose: 1 each Non-Formulary Medication (Brimonidine Tartrate/Timolol [Combigan 0.2%-0.5% Eye Drops]) 1 drop EYEBOTH DAILY [facility] Timolol Maleate (Timoptic 0.5% Ophth Soln) 0 ml EYEBOTH DAILY [facility] Last Admin: 06/14/19 10:11 Dose: Not Given Trimethoprim/Sulfamethoxazole (Septra Ds) 1 tab PO BID [facility] Last Admin: 06/16/19 09:04 Dose: 1 tab - Exam Quality Assessment: DVT Prophylaxis (TEDS ordered. Patient refused Lovenox) General: Alert, Oriented, Cooperative, No Acute Distress HEENT: Pupils Equal, Pupils Reactive, EOMI, Mucous Membr. Moist/[place] Neck: Supple Lungs: Clear to Auscultation, Normal Respiratory Effort Cardiovascular: Regular Rate, Regular Rhythm GI/Abdominal Exam: Soft, Non-Tender (Male) Exam: Deferred Back Exam: Normal Inspection Extremities: Other (Left foot: redness distal dorsal left foot with swelling noted left middle toe. Ulcer on tip of left middle toe/drainage present on dressing. Some skin sloughed off toe as nurse cleansed area. ). No: Mitzy's Sign Skin: Warm Wound/Incisions: Drainage, Erythema Neurological: No New Focal Deficit Psy/Mental Status: Alert, Normal Affect, Normal Mood Sepsis Event Note - Evaluation Sepsis Screening Result: No Definite Risk - Focused Exam Vital Signs: Vital Signs Temp Pulse Resp BP BP BP Pulse Ox 06/17/19 07:59 36.6 C 68 20 130/77 98 06/17/19 07:48 130/77 06/17/19 06:00 36.8 C 61 16 120/79 99 06/16/19 23:59 36.7 C 64 16 112/69 95 Date Exam was Performed: 06/17/19 Time Exam was Performed: 11:55 - Problem List & Annotations (1) Cellulitis SNOMED Code(s): 626106238 Code(s): L03.90 - CELLULITIS, UNSPECIFIED Status: Acute Priority: High Current Visit: Yes Onset Date: 06/12/19 Qualifiers: Site of cellulitis: extremity Site of cellulitis of extremity: lower extremity Laterality: left Qualified Code(s): L03.116 - Cellulitis of left lower limb Annotation/Comment:: Cellulitis left 3rd toe. Improving but toe still very swollen/drainage present.. Culture showed Staph Haemolyticus. Antibiotics switched to IV Clindamycin based on sensitivity results. WBC normal today. See note from 's regarding surgical consult. Positive CT scan for osteomyelitis. Follow up appointment with [facility] obtained for July 01, however may need to consider a more immediate evaluation if amputation is possible best option. Physical therapy consultation for wound care, etc. as above with care to be coordinated with general surgeon. Note that the patient is wanting to claim this as a Workmen's Compensation injury secondary to his foot exposure while cleaning buckets on 06/12 . Note, however, the patient did have a previous grade 2 ulcer in the same area about one week ago with no known previous infection. The patient has initiated appropriate paperwork for Workmen's Compensation claim. Blood Cultures negative. His leukocytosis is improving. A probiotic was initiated today secondary to aggressive metabolic therapy required as above. (2) Osteomyelitis SNOMED Code(s): 20647360 Code(s): M86.9 - OSTEOMYELITIS, UNSPECIFIED Status: Acute Priority: High Current Visit: Yes Onset Date: 06/13/19 Qualifiers: Osteomyelitis type: other acute Osteomyelitis location: foot Laterality: left Qualified Code(s): M86.172 - Other acute osteomyelitis, left ankle and foot Annotation/Comment:: As above. Left middle toe. Possible amputation on an outpatient basis if fails antibiotics. Will likely need 4 weeks of antibiotic therapy. Podiatry appointment pending July 01. Debrided by surgery . Refer to surgeon's note regarding procedure. (3) Diabetic neuropathy SNOMED Code(s): 815666583, 162049558 Code(s): E11.40 - TYPE 2 DIABETES MELLITUS WITH DIABETIC NEUROPATHY, UNSP Status: Acute Priority: High Current Visit: Yes Onset Date: ~06/13/19 Qualifiers: Diabetes mellitus type: type 2 Diabetes mellitus complication detail: diabetic polyneuropathy Qualified Code(s): E11.42 - Type 2 diabetes mellitus with diabetic polyneuropathy Annotation/Comment:: Probable newly diagnosed diabetic neuropathy secondary to no discomfort from removing callus/eschar from his toe 1 week ago. Close observation by his regular provider on an outpatient basis. (4) COPD (chronic obstructive pulmonary disease) SNOMED Code(s): 44978476 Code(s): J44.9 - CHRONIC OBSTRUCTIVE PULMONARY DISEASE, UNSPECIFIED Status : Chronic Priority: Medium Current Visit: Yes Qualifiers: COPD type: emphysema Emphysema type: panlobular Qualified Code(s): J43.1 - Panlobular emphysema Annotation/Comment:: Stable by patient history with no recent bronchitic type symptoms. Note no previous medical therapy. Consider PFTs in the future. (5) Diabetes mellitus SNOMED Code(s): 20404402 Code(s): E11.9 - TYPE 2 DIABETES MELLITUS WITHOUT COMPLICATIONS Status: Chronic Priority: Medium Current Visit: Yes Qualifiers: Diabetes mellitus type: type 2 Diabetes mellitus terminal carman insulin use: without terminal carman use Diabetes mellitus complication status: with neurologic complications Diabetes mellitus complication detail: with polyneuropathy Qualified Code(s): E11.42 - Type 2 diabetes mellitus with diabetic polyneuropathy Annotation/Comment:: He does not Accu-Cheks at home, however excellent glycosylated hemoglobin in March by his regular provider. Observe for now. (6) Hyperlipidemia SNOMED Code(s): 22069006 Code(s): E78.5 - HYPERLIPIDEMIA, UNSPECIFIED Status: Chronic Priority: Medium Current Visit: Yes Qualifiers: Hyperlipidemia type: mixed hyperlipidemia Qualified Code(s): E78.2 - Mixed hyperlipidemia Annotation/Comment:: Currently under therapy. Continue to observe closely by his regular provider. (7) Hypertension SNOMED Code(s): 74862348 Code(s): I10 - ESSENTIAL (PRIMARY) HYPERTENSION Status: Chronic Priority : Medium Current Visit: Yes Qualifiers: Hypertension type: essential hypertension Qualified Code(s): I10 - Essential (primary) hypertension Annotation/Comment:: Stable in the emergency room and during this hospitalization. (8) Mixed anxiety depressive disorder SNOMED Code(s): 791010589 Code(s): F41.8 - OTHER SPECIFIED ANXIETY DISORDERS Status: Chronic Priority: Medium Current Visit: Yes Annotation/Comment:: Stable by patient history, however note significant stressors at home currently secondary to his having to take care of his son with muscular dystrophy in [place] during the last 1.5 years. Emotional support was provided. (9) Peptic reflux disease SNOMED Code(s): 744887976 Code(s): K21.9 - GASTRO-ESOPHAGEAL REFLUX DISEASE WITHOUT ESOPHAGITIS Status: Chronic Priority: Medium Current Visit: Yes Annotation/Comment:: Stable by history. - Problem List Review Problem List Initiated/Reviewed/Updated: Yes - My Orders Last 24 Hours: My Active Orders 06/16/19 15:45 Enoxaparin [Lovenox] 40 mg SUBCUT DAILY 06/16/19 16:00 Clindamycin in 0.9 % Sod Chlor [Cleocin in NS] 600 mg Premix Bag 1 bag IV Q8H - Assessment Assessment:: As above - Plan Plan:: As above. Extensive precautions were given to the patient, who is in agreement with the treatment plan. The patient will require additional day of inpatient care as he is receiving IV antibiotics and no significant change other than reduced pain has been observed in affected toe. Consider telephone consult with Ortho tomorrow prior to considering discharge home to help assist with appropriate planning and follow up. 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 to assume patient's care this evening
[2019-06-17] MEDS: Sodium Chloride 0.9% 10 ML Syringe FLUSH PRN ×2 (17:16)
[2019-06-17] MEDS: Fenofibrate,Micronized 134 MG Cap PO SCH (20:51)
[2019-06-17] MEDS: Pravastatin 20 MG Tab PO SCH (20:51)
[2019-06-17] MEDS: Latanoprost 0.005% Ophth Soln 2.5 ML Bottle**OWN MED EYEBOTH SCH (20:52)
[2019-06-18] MEDS: Clindamycin in 0.9 % Sod Chlor 600 MG in Premix Bag 1 BAG IV SCH ×4 (00:11→08:43)
[2019-06-18] MEDS: Sodium Chloride 0.9% 10 ML Syringe FLUSH SCH ×2 (00:11→01:35)
[2019-06-18] MEDS: Sodium Chloride 0.9% 10 ML Syringe FLUSH PRN (08:41)
[2019-06-18] MEDS: Lactobacillus Rhamnosus GG (Probiotic) Cap PO SCH (08:42)
[2019-06-18] MEDS: TIMOLOL MALEATE 0.25% EYEBOTH SCH (08:42)
[2019-06-18] MEDS: Enoxaparin 40 MG/0.4 ML Syringe SUBCUT SCH (08:42)
[2019-06-18] MEDS: metFORMIN 500 MG Tab PO SCH (08:43)
[2019-06-18] MEDS: Losartan 50 MG Tab PO SCH (08:43)
[2019-06-18 08:44] VITALS: BP 109/72
[2019-06-18 08:58] VITALS: PULSE 58
--- NOTE | 2019-06-18 10:59 | PCM.DCSUM1 ---
Discharge Summary - Hospital Course Free Text/Narrative:: Pt admitted with cellulitis and osteo of middle toe Pt placed on IV antibiotics and has had improved clinical condition Wound culture shows sensitive to all antibiotics tested Will arrange for daily outpt IV Rocephin and daily dressing changes and place on oral Bactrim DS and oral clindamycin Diagnosis: Stroke: No - Discharge Data Discharge Date: 06/18/19 Discharge Disposition: Home, Self-Care 01 Condition: Good - Referral to Home Health Primary Care Physician: Shayy Hargrove NP - Discharge Diagnosis/Problem(s) (1) Cellulitis SNOMED Code(s): 982844427 ICD Code: L03.90 - CELLULITIS, UNSPECIFIED Status: Acute Priority: High Current Visit: Yes Onset Date: 06/12/19 Problem Details: Cellulitis left 3rd toe. Improving but toe still very swollen/drainage present.. Culture showed Staph Haemolyticus. Antibiotics switched to IV Clindamycin based on sensitivity results. WBC normal today. See note from 's regarding surgical consult. Positive CT scan for osteomyelitis. Follow up appointment with [facility] obtained for July 01, however may need to consider a more immediate evaluation if amputation is possible best option. Physical therapy consultation for wound care, etc. as above with care to be coordinated with general surgeon. Patient to have wound dressing changes and IV antibiotics as an outpatient. Note that the patient is wanting to claim this as a Workmen's Compensation injury secondary to his foot exposure while cleaning buckets on 06/12 . Note, however, the patient did have a previous grade 2 ulcer in the same area about one week ago with no known previous infection. The patient has initiated appropriate paperwork for Workmen's Compensation claim. Blood Cultures negative. His leukocytosis is improving. A probiotic was initiated today secondary to aggressive metabolic therapy required as above. Qualifiers: Site of cellulitis: extremity Site of cellulitis of extremity: lower extremity Laterality: left Qualified Code(s): L03.116 - Cellulitis of left lower limb (2) Diabetic neuropathy SNOMED Code(s): 671022250, 027371272 ICD Code: E11.40 - TYPE 2 DIABETES MELLITUS WITH DIABETIC NEUROPATHY, UNSP Status: Acute Priority: High Current Visit: Yes Onset Date: ~06/13/19 Problem Details: Probable newly diagnosed diabetic neuropathy secondary to no discomfort from removing callus/eschar from his toe 1 week ago. Close observation by his regular provider on an outpatient basis. Qualifiers: Diabetes mellitus type: type 2 Diabetes mellitus complication detail: diabetic polyneuropathy Qualified Code(s): E11.42 - Type 2 diabetes mellitus with diabetic polyneuropathy (3) Osteomyelitis SNOMED Code(s): 41555725 ICD Code: M86.9 - OSTEOMYELITIS, UNSPECIFIED Status: Acute Priority: High Current Visit: Yes Onset Date: 06/13/19 Problem Details: As above. Left middle toe. Possible amputation on an outpatient basis if fails antibiotics. Will likely need 4 weeks of antibiotic therapy. Podiatry appointment pending July 01. Debrided by surgery . Refer to surgeon' s note regarding procedure. Qualifiers: Osteomyelitis type: other acute Osteomyelitis location: foot Laterality: left Qualified Code(s): M86.172 - Other acute osteomyelitis, left ankle and foot (4) Diabetes mellitus SNOMED Code(s): 54087743 ICD Code: E11.9 - TYPE 2 DIABETES MELLITUS WITHOUT COMPLICATIONS Status: Chronic Priority: Medium Current Visit: Yes Problem Details: He does not Accu-Cheks at home, however excellent glycosylated hemoglobin in March by his regular provider. Observe for now. Qualifiers: Diabetes mellitus type: type 2 Diabetes mellitus manager long term care insulin use: without custodial use Diabetes mellitus complication status: with neurologic complications Diabetes mellitus complication detail: with polyneuropathy Qualified Code(s): E11.42 - Type 2 diabetes mellitus with diabetic polyneuropathy - Patient Summary/Data Consults: Consultations 06/13/19 14:18 PT Evaluation and Treatment [CONS] Routine 06/14/19 08:51 Consult to Physician [CONS] Routine - Patient Instructions Diet: Diabetic Diet Activity: As Tolerated Showering/Bathing: May Shower Wound/Incision Care: Keep Operative Site/Wound Site Clean and Dry, Change Dressing Daily Notify Provider of: Fever, Increased Pain, Swelling and Redness, Drainage, Nausea and/or Vomiting - Discharge Plan *PRESCRIPTION DRUG MONITORING PROGRAM REVIEWED*: Not Applicable *COPY OF PRESCRIPTION DRUG MONITORING REPORT IN PATIENT JAY: Not Applicable Prescriptions/Med Rec: Clindamycin HCl 150 mg PO QID #40 capsule Sulfamethoxazole/Trimethoprim [Bactrim Ds Tablet] 1 each PO BID #20 tablet Home Medications: Home Meds EPINEPHrine [Epipen 2-Shon] 0.3 ml SUBCUT ASDIRECTED PRN 11/05/15 [History] Fenofibrate,Micronized [Fenofibrate] 134 mg PO BEDTIME 11/05/15 [History] Latanoprost 1 drop EYEBOTH BEDTIME 11/05/15 [History] Olmesartan [Benicar] 20 mg PO DAILY 11/05/15 [History] Pravastatin Sodium [Pravachol] 40 mg PO BEDTIME 11/05/15 [History] metFORMIN HCl [Metformin HCl] 1,000 mg PO DAILY@1800 06/13/19 [History] metFORMIN HCl [Metformin HCl] 500 mg PO DAILY 06/13/19 [History] Timolol Maleate 1 drop EYEBOTH DAILY 06/14/19 [History] Clindamycin HCl 150 mg PO QID #40 capsule 06/18/19 [Rx] Sulfamethoxazole/Trimethoprim [Bactrim Ds Tablet] 1 each PO BID #20 tablet 06/18 [Rx] Patient Handouts: Clindamycin injection, Ceftriaxone injection, Enoxaparin injection Forms: ED Department Discharge Referrals: Shayy Hargrove NP [Primary Care Provider] - - Discharge Summary/Plan Comment DC Time >30 min.: No - General Info Date of Service: 06/18/19 - Review of Systems HEENT: Reports: No Symptoms Pulmonary: Reports: No Symptoms, Sputum Gastrointestinal: Reports: No Symptoms Musculoskeletal: Reports: Other (Middle toe with erythema and drainage) Skin: Reports: Other (Open area on toe) - Patient Data Vitals - Most Recent: Last Vital Signs Temp 97.8 F 06/18/19 08:00 Pulse 58 L 06/18/19 08:00 Resp 16 06/18/19 08:00 BP 109/72 06/18/19 08:43 Pulse Ox 97 06/18/19 08:00 Weight - Most Recent: 226 lb 14.4 oz I&O - Last 24 hours: Intake & Output 06/17/19 06/18/19 06/18/19 18:59 02:59 10:59 Intake Total 7636 769 9907 Output Total 1900 1250 Balance 1550 -1300 -200 Lab Results - Last 24 hrs: Laboratory Results - last 24 hr 06/18/19 06/18/19 Range/Units 07:27 07:27 WBC 7.3 (4.0-10.2) K/uL RBC 4.61 (4.33-5.41) M/uL Hgb 14.3 (13.1-16.8) g/dL Hct 42.4 (39.0-49.0) % MCV 92.0 (84.0-98.0) fL MCH 31.0 (28.2-33.3) pg MCHC 33.7 (31.7-36.0) g/dL RDW 12.8 (11.2-14.1) % Plt Count 199 (150-350) K/uL Neut % (Auto) 64.2 (45.0-80.0) % Lymph % (Auto) 23.6 (10.0-50.0) % [place] % (Auto) 6.9 (2.0-14.0) % Eos % (Auto) 5.0 (0.0-5.0) % Baso % (Auto) 0.3 (0.0-2.0) % Neut # (Auto) 4.66 (1.40-7.00) K/uL Lymph # (Auto) 1.71 (0.50-3.50) K/uL [place] # (Auto) 0.50 (0.00-1.00) K/uL Eos # (Auto) 0.36 (0.00-0.50) K/uL Baso # (Auto) 0.02 (0.00-0.20) K/uL Sodium 141 (136-145) mmol/L Potassium 4.4 (3.5-5.1) mmol/L Chloride 103 (98-107) mmol/L Carbon Dioxide 28.9 (21.0-32.0) mmol/L BUN 27 H (7-18) mg/dL Creatinine 1.25 H (0.51-1.17) mg/dL Est Cr Clr Drug Dosing 72.33 mL/min Estimated GFR (MDRD) 58 mL/min Glucose 118 H (74-106) mg/dL Calcium 9.5 (8.5-10.1) mg/dL Total Bilirubin 0.4 (0.2-1.0) mg/dL AST 23 (15-37) U/L ALT 34 (12-78) U/L Alkaline Phosphatase 60 (46-116) IU/L Total Protein 7.8 (6.4-8.2) g/dL Albumin 3.9 (3.4-5.0) g/dL [id number] Results - Last 24 hrs: Microbiology 06/13/19 12:55 Aerobic Blood Culture - Preliminary Blood - Venous - Lab Draw NO GROWTH AFTER 4 DAYS Anaerobic Blood Culture - Preliminary NO GROWTH AFTER 4 DAYS 06/13/19 12:40 Aerobic Blood Culture - Preliminary Blood - Venous NO GROWTH AFTER 4 DAYS Anaerobic Blood Culture - Preliminary NO GROWTH AFTER 4 DAYS Med Orders - Current: Current Medications Acetaminophen (Tylenol) 650 mg PO Q4H PRN PRN Reason: Pain/Fever Enoxaparin Sodium (Lovenox) 40 mg SUBCUT DAILY [facility] Last Admin: 06/18/19 08:42 Dose: Not Given Fenofibrate (Fenofibrate) 134 mg PO BEDTIME [facility] Last Admin: 06/17/19 20:51 Dose: 134 mg Clindamycin/Sodium Chloride (600 mg/ Premix) 50 mls @ 150 mls/hr IV Q8H [facility] Last Admin: 06/18/19 08:43 Dose: 150 mls/hr Lactobacillus Rhamnosus (Culturelle) 2 cap PO BID [facility] Last Admin: 06/18/19 08:42 Dose: 2 cap Latanoprost (Xalatan 0.005% Ophth Soln) 0 ml EYEBOTH BEDTIME [facility] Last Admin: 06/17/19 20:52 Dose: 1 drop Losartan Potassium (Cozaar) 50 mg PO DAILY [facility] Last Admin: 06/18/19 08:43 Dose: 50 mg Metformin HCl (Glucophage) 500 mg PO DAILY [facility] Last Admin: 06/18/19 08:43 Dose: 500 mg Metformin HCl (Glucophage) 1,000 mg PO DAILY@1800 [facility] Last Admin: 06/17/19 17:16 Dose: 1,000 mg Pravastatin Sodium (Pravachol) 40 mg PO BEDTIME [facility] Last Admin: 06/17/19 20:51 Dose: 40 mg Sodium Chloride (Saline Flush) 10 ml FLUSH ASDIRECTED PRN PRN Reason: Keep Vein Open Last Admin: 06/18/19 08:41 Dose: 10 ml Sodium Chloride (Saline Flush) 10 ml FLUSH Q12H [facility] Last Admin: 06/18/19 01:35 Dose: Not Given Temazepam (Restoril) 15 mg PO BEDTIME PRN PRN Reason: Insomnia Timolol Maleate (Timoptic 0.25% Ophth Soln) 0 ml EYEBOTH DAILY [facility] Last Admin: 06/18/19 08:42 Dose: 1 drop Discontinued Medications Acetaminophen (Tylenol) 650 mg PO ONETIME ONE Stop: 06/13/19 12:36 Last Admin: 06/13/19 13:04 Dose: 650 mg Albuterol/Ipratropium (Duoneb 3.0-0.5 Mg/3 Ml) 3 ml NEB Q6HRRT [facility] Brimonidine Tartrate (Alphagan 0.2% Ophth Soln) 0 ml EYEBOTH DAILY [facility] Last Admin: 06/14/19 10:12 Dose: Not Given Ceftriaxone Sodium 1 gm/ (Sodium Chloride) 100 mls @ 200 mls/hr IV ONETIME ONE Stop: 06/13/19 13:04 Last Admin: 06/13/19 13:04 Dose: 200 mls/hr Lactated Ringer's (Ringers, Lactated) 1,000 mls @ 999 mls/hr IV .BOLUS ONE Stop: 06/13/19 15:15 Last Admin: 06/13/19 14:42 Dose: 999 mls/hr Ceftriaxone Sodium 1 gm/ (Sodium Chloride) 100 mls @ 200 mls/hr IV Q12H [facility] Last Admin: 06/16/19 13:09 Dose: 200 mls/hr Latanoprost (Xalatan 0.005% Ophth Soln) 0 ml EYEBOTH BEDTIME [facility] Last Admin: 06/13/19 20:04 Dose: Not Given Neomycin/Polymyxin/Bacitracin (Triple Antibiotic Oint) 1 each TOP DAILY [facility] Last Admin: 06/14/19 07:20 Dose: 1 each Non-Formulary Medication (Brimonidine Tartrate/Timolol [Combigan 0.2%-0.5% Eye Drops]) 1 drop EYEBOTH DAILY [facility] Timolol Maleate (Timoptic 0.5% Ophth Soln) 0 ml EYEBOTH DAILY [facility] Last Admin: 06/14/19 10:11 Dose: Not Given Trimethoprim/Sulfamethoxazole (Septra Ds) 1 tab PO BID [facility] Last Admin: 06/16/19 09:04 Dose: 1 tab - Exam General: Reports: Alert, Oriented HEENT: Reports: Mucous Membr. Moist/[place] Extremities: Other (Middle toe with swelling, erythema and minimal drainage from sinus opening) Skin: Reports: Other (Open area on middle toe)
== END 2019-06-18 12:20 | disposition home or self-care (01) | DRG 344 ==
LOC: LL.ED 12:27 → UNDOADMIN 13:56 → LL.MS 13:56
PROVIDERS: ADMIT Family Medicine; ATTEND Family Medicine
DX: E11.628 Type 2 diabetes mellitus with other skin complications (principal); E11.69 Type 2 diabetes mellitus with other specified complication; H40.9 Unspecified glaucoma; H54.7 Unspecified visual loss; I10 Essential (primary) hypertension; E78.2 Mixed hyperlipidemia; K21.9 Gastro-esophageal reflux disease without esophagitis; N40.0 Benign prostatic hyperplasia without lower urinary tract symptoms; M19.90 Unspecified osteoarthritis, unspecified site; E66.9 Obesity, unspecified; F41.8 Other specified anxiety disorders; L03.116 Cellulitis of left lower limb; J43.1 Panlobular emphysema; E11.42 Type 2 diabetes mellitus with diabetic polyneuropathy; M86.172 Other acute osteomyelitis, left ankle and foot; Z90.89 Acquired absence of other organs; Z91.030 Bee allergy status; Z79.84 Long term (current) use of oral hypoglycemic drugs; Z79.899 Other long term (current) drug therapy
CPT/HCPCS: 36415; 73700-LT; 80053; 82272; 83605; 83735; 84443; 85025; 85379; 85610; 85730; 87040; 87070; 87077; 87088; 87186; 87205; 96365; 99284-25; A9270-GY; J0696; J3490; J7050; J7120

== ENCOUNTER 2020-04-01 18:25 | Emergency (ER) | payer OTHER, BC ==
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
[2020-04-01 19:06] LABS: CHLORIDE,CL 104 mmol/L (98-107); SODIUM,NA 140 mmol/L (136-145)
[2020-04-01] MEDS ORDERED: traMADol 50 MG Tab PO ONE ×2 (20:23→21:00)
[2020-04-01] MEDS ORDERED: Ketorolac 10 MG Tab PO ONE ×2 (20:23→21:00)
[2020-04-01] MEDS ORDERED: Cyclobenzaprine 10 MG Tab PO ONE ×2 (20:24→21:00)
[2020-04-01] MEDS ORDERED: traMADol 50 MG Tab ONE (20:55)
[2020-04-01] MEDS ORDERED: Ketorolac 10 MG Tab ONE (20:55)
[2020-04-01] MEDS ORDERED: Cyclobenzaprine 10 MG Tab ONE (20:55)
== END 2020-04-01 21:00 | disposition home or self-care (01) ==
LOC: LL.ED 18:25
DX: S13.4XXA Sprain of ligaments of cervical spine, initial encounter (principal); E78.5 Hyperlipidemia, unspecified; I10 Essential (primary) hypertension; E66.9 Obesity, unspecified; J44.9 Chronic obstructive pulmonary disease, unspecified; E11.42 Type 2 diabetes mellitus with diabetic polyneuropathy; Z91.030 Bee allergy status; Z79.899 Other long term (current) drug therapy; Z79.84 Long term (current) use of oral hypoglycemic drugs; V59.9XXA Occupant (driver) (passenger) of pick-up truck or van injured in unspecified traffic accident, initial encounter
CPT/HCPCS: 36415; 71046; 72050; 80053; 81003; 83735; 85025; 99284-25; A9270-GY